=== PATIENT | female | born 1955 | race African-American/Black ===

== ENCOUNTER 2017-04-05 12:43 | Emergency (ER) | payer MEDICAID ==
[~2017-04-05] VITALS: Ht 170.2 cm; Wt 85.0 kg
[2017-04-05] MEDS ORDERED: SODIUM CHLORIDE 0.9% 1,000 ML IV ONE (16:00)
[2017-04-05 16:35] LABS: BASOPHILS % 0.6 % (0.0-2.0); CARBON DIOXIDE 31 mEq/L (21-32); CHLORIDE 97 mEq/L (98-107); HEMATOCRIT. 42.2 % (36.0-48.0); HEMOGLOBIN. 13.7 g/dL (12.0-16.0); LYMPHOCYTES % 32.3 % (20.0-50.0); MEAN CORPUSCULAR HEMOGLOBIN 28.3 pg (28.0-32.0); MEAN CORPUSCULAR VOLUME 87.2 fL (81.0-99.0); MONOCYTES % 11.3 % (2.0-8.0); NEUTROPHILS % 54.8 % (40.0-76.0); PLATELET 269 x1000/uL (130-400); RED BLOOD CELL COUNT 4.84 mill/uL (4.2-5.4); RED CELL DISTRIBUTION WIDTH 13.5 % (11.6-14.6)
[2017-04-05 16:40] LABS: TROPONIN I < 0.02 ng/mL (0.00-0.04)
[2017-04-05] MEDS ORDERED: LORAZEPAM 2MG/ML CPJ IV ONE (18:30)
[2017-04-05] MEDS ORDERED: LORAZEPAM 1MG TABLET PO NR (18:30)
[2017-04-05] MEDS ORDERED: MORPHINE SULFATE 2 MG/ML CPJ (NOT FOR IM USE) IV NR (18:30)
[2017-04-05 21:11] VITALS: BP 119/81
== END 2017-04-05 21:11 | disposition home or self-care (01) ==
LOC: ER 12:50
DX: E86.0 Dehydration (principal); R53.83 Other fatigue; R51 Headache; E78.00 Pure hypercholesterolemia, unspecified; E11.9 Type 2 diabetes mellitus without complications
CPT/HCPCS: 36415; 71010; 80053; 83605; 83690; 83880; 84484; 85025; 87040; 93005; 96361; 96374; 99285; J2270; J7030

== ENCOUNTER 2019-04-19 08:13 | Emergency (ER) | payer MEDICAID, OTHER ==
[~2019-04-19] VITALS: Ht 162.6 cm; Wt 85.0 kg
[2019-04-19] MEDS ORDERED: MORPHINE SULFATE 4 MG/ML CPJ (NOT FOR IM USE) IV STA (08:55)
[2019-04-19] MEDS ORDERED: ONDANSETRON HCL 4MG/2ML INJ IV STA (08:55)
[2019-04-19 09:53] LABS: CLARITY URINE CLEAR (CLEAR); COLOR URINE YELLOW (YELLOW); KETONES URINE 3+ (NEGATIVE); LEUKOCYTE ESTERASE URINE NEGATIVE (NEGATIVE); NITRITE URINE NEGATIVE (NEGATIVE); OCCULT BLOOD URINE TRACE (NEGATIVE); PH URINE 5.5 (4.5-8.0); PROTEIN URINE 1+ (NEGATIVE); SPECIFIC GRAVITY URINE 1.019 (1.005-1.030); UROBILINOGEN URINE 0.2 E.U./dL (0.2-1.0)
[2019-04-19 10:42] LABS: BASOPHILS % 0.3 % (0.0-2.0); EOSINOPHILS % 0.1 % (0.0-5.0); HEMATOCRIT. 35.2 % (36.0-48.0); HEMOGLOBIN. 11.5 g/dL (12.0-16.0); LYMPHOCYTES % 14.8 % (20.0-50.0); MEAN CORPUSCULAR HEMOGLOBIN 28.3 pg (28.0-32.0); MEAN CORPUSCULAR VOLUME 86.6 fL (81.0-99.0); MEAN PLATELET VOLUME 8.5 fl (7.4-10.4); MONOCYTES % 8.4 % (2.0-8.0); NEUTROPHILS % 76.4 % (40.0-76.0); PLATELET 222 x1000/uL (130-400); RED BLOOD CELL COUNT 4.06 mill/uL (4.2-5.4); RED CELL DISTRIBUTION WIDTH 13.4 % (11.6-14.6)
[2019-04-19 10:44] LABS: CHLORIDE 102 mEq/L (98-107)
[2019-04-19] MEDS ORDERED: ONDANSETRON 4MG ODT ONE (13:40)
[2019-04-19] MEDS ORDERED: ONDANSETRON HCL 4MG TABLET PO ONE (13:45)
[2019-04-19 14:18] VITALS: BP 162/80
[2019-04-22] MEDS ORDERED: OMEP40CA34 MT (11:27)
== END 2019-04-19 14:18 | disposition home or self-care (01) ==
LOC: ER 08:13
DX: R10.13 Epigastric pain (principal); R19.7 Diarrhea, unspecified; I10 Essential (primary) hypertension
CPT/HCPCS: 36415; 80053; 81003; 83690; 85025; 85610; 96374; 96375; 99283; J2270; J2405; Q0162

== ENCOUNTER 2019-04-20 09:26 | Inpatient (IN) | payer MEDICAID, OTHER ==
[~2019-04-20] VITALS: Ht 167.6 cm; Wt 80.9 kg
[2019-04-20] MEDS ORDERED: ACETAMINOPHEN 325MG TABLET PO STA (09:58)
[2019-04-20] MEDS ORDERED: ONDANSETRON HCL 4MG/2ML INJ IV STA (09:58)
[2019-04-20] MEDS ORDERED: SODIUM CHLORIDE 0.9% 1,000 ML IV ONE ×2 (09:58→12:05)
[2019-04-20] MEDS ORDERED: VISCOUS LIDOCAINE 2% 15 ML UDC PO STA (10:06)
[2019-04-20] MEDS ORDERED: MAGNESIUM/ALUMINUM HYDROXIDE/SIMETHICONE 30ML UDC PO STA (10:06)
[2019-04-20] MEDS ORDERED: FAMOTIDINE 20MG/2ML VIAL IV STA (10:06)
[2019-04-20 10:13] LABS: CHLORIDE 96 mEq/L (98-107)
[2019-04-20 10:14] LABS: BASOPHILS % 0.3 % (0.0-2.0); HEMATOCRIT. 39.2 % (36.0-48.0); HEMOGLOBIN. 12.4 g/dL (12.0-16.0); LYMPHOCYTES % 13.2 % (20.0-50.0); MEAN CORPUSCULAR VOLUME 88.3 fL (81.0-99.0); MEAN PLATELET VOLUME 9.6 fl (7.4-10.4); MONOCYTES % 5.3 % (2.0-8.0); NEUTROPHILS % 81.2 % (40.0-76.0); PLATELET 237 x1000/uL (130-400); RED BLOOD CELL COUNT 4.44 mill/uL (4.2-5.4); RED CELL DISTRIBUTION WIDTH 13.8 % (11.6-14.6)
[2019-04-20 11:24] LABS: CLARITY URINE CLEAR (CLEAR); COLOR URINE YELLOW (YELLOW); KETONES URINE 4+ (NEGATIVE); LEUKOCYTE ESTERASE URINE NEGATIVE (NEGATIVE); NITRITE URINE NEGATIVE (NEGATIVE); OCCULT BLOOD URINE NEGATIVE (NEGATIVE); PH URINE 5.5 (4.5-8.0); PROTEIN URINE TRACE (NEGATIVE); SPECIFIC GRAVITY URINE 1.037 (1.005-1.030); UROBILINOGEN URINE 0.2 E.U./dL (0.2-1.0)
[2019-04-20] MEDS ORDERED: INSULIN REGULAR (DRIP) 100 UNITS in SODIUM CHLORIDE 0.9% 99 ML IV SCH (12:05)
[2019-04-20] MEDS ORDERED: IOHEXOL-300 100 ML BOTTLE ONE (12:44)
[2019-04-20 13:01] LABS: PHOSPHORUS 4.4 mg/dL (2.5-4.9)
[2019-04-20 15:17] LABS: CHLORIDE 100 mEq/L (98-107)
[2019-04-20] MEDS ORDERED: ACETAMINOPHEN 325MG TABLET PO PRN (16:00)
[2019-04-20] MEDS ORDERED: DOCUSATE SODIUM 100MG CAPSULE PO PRN (16:00)
[2019-04-20] MEDS ORDERED: MAGNESIUM/ALUMINUM HYDROXIDE/SIMETHICONE 30ML UDC PO PRN (16:00)
[2019-04-20] MEDS ORDERED: ENOXAPARIN 40MG/0.4ML SYR SUBCUT SCH (16:00)
[2019-04-20] MEDS ORDERED: CLONIDINE 0.1MG TABLET PO PRN (16:00)
[2019-04-20] MEDS ORDERED: IPRATROPIUM/ALBUTEROL 0.5-3(2.5)MG/3ML NEB NEB PRN (16:00)
[2019-04-20 16:28] LABS: CHLORIDE 101 mEq/L (98-107)
[2019-04-20 17:54] LABS: BETA HYDROXYBUTYRATE 9.4 mMol/L (0.0-0.3)
[2019-04-20 17:57] LABS: T4 FREE 0.92 ng/dL (0.76-1.46)
[2019-04-20 19:38] LABS: CHLORIDE 102 mEq/L (98-107)
[2019-04-20 20:36] LABS: CHLORIDE 102 mEq/L (98-107)
[2019-04-20] MEDS: MORPHINE SULFATE 2 MG/ML CPJ (NOT FOR IM USE) IV PRN (21:24)
[2019-04-20] MEDS: SODIUM CHL 0.45% + KCL 20MEQ/L 1,000 ML IV SCH (22:24)
[2019-04-20] MEDS ORDERED: MORPHINE SULFATE 4 MG/ML CPJ (NOT FOR IM USE) IV PRN (22:30)
[2019-04-21] VITALS (19 sets, daily range): BP systolic 100–143; BP diastolic 41–95
[2019-04-21] MEDS: DEXTROSE 50% WATER 50ML SYRINGE IV PRN ×2 (01:31→03:00)
[2019-04-21] MEDS: MORPHINE SULFATE 2 MG/ML CPJ (NOT FOR IM USE) IV PRN ×2 (02:59→06:31)
[2019-04-21] MEDS: SODIUM CHL 0.45% + KCL 20MEQ/L 1,000 ML IV SCH (05:30)
[2019-04-21 05:55] LABS: BASOPHILS % 0.5 % (0.0-2.0); EOSINOPHILS % 0.1 % (0.0-5.0); HEMATOCRIT. 37.1 % (36.0-48.0); HEMOGLOBIN. 12.2 g/dL (12.0-16.0); LYMPHOCYTES % 26.9 % (20.0-50.0); MEAN CORPUSCULAR HEMOGLOBIN 28.2 pg (28.0-32.0); MEAN CORPUSCULAR VOLUME 86.1 fL (81.0-99.0); MEAN PLATELET VOLUME 8.8 fl (7.4-10.4); MONOCYTES % 11.8 % (2.0-8.0); NEUTROPHILS % 60.7 % (40.0-76.0); PLATELET 258 x1000/uL (130-400); RED BLOOD CELL COUNT 4.31 mill/uL (4.2-5.4); RED CELL DISTRIBUTION WIDTH 13.6 % (11.6-14.6)
[2019-04-21 06:06] LABS: CHLORIDE 107 mEq/L (98-107)
[2019-04-21 06:14] LABS: PHOSPHORUS 1.8 mg/dL (2.5-4.9)
[2019-04-21] MEDS: PANTOPRAZOLE SODIUM 40 MG/VIAL IV SCH (08:09)
[2019-04-21] MEDS: ENOXAPARIN 30MG/0.3ML SYR SUBCUT SCH ×2 (08:10→08:17)
[2019-04-21 09:25] LABS: BG BASE EXCESS -0.1 mmol/L (-2.0-2.0); BG CARBOXYHEMOGLOBIN 1.1 % (0.5-1.5); BG DEOXYHEMOGLOBIN 5.9 % (0.0-5.0); BG FRACTION INSPIRED OXYGEN 21; BG HCO3 ACT 25.4 mmol/L (22.0-26.0); BG METHEMOGLOBIN 0.1 % (0.0-1.5); BG OXYHEMOGLOBIN 92.9 % (94.0-97.0); BG PCO2 44.9 mmHg (35.0-45.0); BG PO2 73.1 mmHg (75.0-100.0); BG SAMPLE SITE RIGHT RADIAL; BG TOTAL HEMOGLOBIN 12.1 g/dL (12.0-18.0); BG VENT MODE ROOM AIR
[2019-04-21] MEDS ORDERED: DEXTROSE 50% WATER 50ML SYRINGE IV PRN (10:15)
[2019-04-21] MEDS ORDERED: POTASSIUM PHOS,M-BASIC-D-BASIC 20 MMOL in DEXT 5% WATER 243.3333 ML IV SCH (11:00)
[2019-04-21] MEDS: BLOOD SUGAR DIAGNOSTIC STRIP TEST SCH ×3 (11:15→20:17)
[2019-04-21] MEDS: INSULIN LISPRO 100 UNITS/ML SUBCUT SCH ×3 (12:02→20:30)
[2019-04-21 13:13] LABS: CHLORIDE 105 mEq/L (98-107)
[2019-04-21 20:01] LABS: CHLORIDE 105 mEq/L (98-107)
[2019-04-21] MEDS ORDERED: POTASSIUM CHLORIDE 20MEQ TABLET SR PO NR (21:15)
[2019-04-21] MEDS ORDERED: INSULIN GLARGINE UD 100 UNITS/ML SYR SUBCUT SCH (22:00)
[2019-04-22] VITALS: BP 122/58
[2019-04-22 04:00] VITALS: BP 96/75
[2019-04-22] MEDS: METOCLOPRAMIDE HCL 10MG/2ML VIAL IV NR ×4 (04:04→06:22)
[2019-04-22 04:07] LABS: FOLICLE STIMULATING HORMONE 8.7 mIU/mL (.); LUTEINIZING HORMONE 1.3 mIU/mL (.); PROLACTIN 15.2 ng/mL (4.8-23.3)
[2019-04-22] MEDS: BLOOD SUGAR DIAGNOSTIC STRIP TEST SCH ×3 (07:26→17:41)
[2019-04-22 07:30] LABS: CHLORIDE 105 mEq/L (98-107)
[2019-04-22 07:51] LABS: BASOPHILS % 0.5 % (0.0-2.0); EOSINOPHILS % 0.6 % (0.0-5.0); HEMATOCRIT. 36.6 % (36.0-48.0); LYMPHOCYTES % 27.9 % (20.0-50.0); MEAN CORPUSCULAR HEMOGLOBIN 28.5 pg (28.0-32.0); MEAN CORPUSCULAR VOLUME 86.8 fL (81.0-99.0); MEAN PLATELET VOLUME 9.1 fl (7.4-10.4); MONOCYTES % 11.5 % (2.0-8.0); NEUTROPHILS % 59.5 % (40.0-76.0); PLATELET 257 x1000/uL (130-400); RED BLOOD CELL COUNT 4.21 mill/uL (4.2-5.4); RED CELL DISTRIBUTION WIDTH 13.5 % (11.6-14.6)
[2019-04-22 08:00] VITALS: BP 142/68
[2019-04-22] MEDS: PANTOPRAZOLE SODIUM 40 MG/VIAL IV SCH (08:05)
[2019-04-22] MEDS: INSULIN LISPRO 100 UNITS/ML SUBCUT SCH ×3 (08:06→18:03)
[2019-04-22] MEDS ORDERED: ENOXAPARIN 40MG/0.4ML SYR SUBCUT SCH (09:00)
[2019-04-22] MEDS ORDERED: FENTANYL CITRATE/PF 50MCG/ML 2ML VIAL IV PRN (09:55)
[2019-04-22] MEDS ORDERED: MIDAZOLAM HCL 5 MG/5 ML VIAL IV PRN (09:56)
[2019-04-22] MEDS ORDERED: MIDAZOLAM HCL 5 MG/5 ML VIAL ONE (09:57)
[2019-04-22] MEDS ORDERED: FENTANYL CITRATE/PF 50MCG/ML 2ML VIAL ONE (09:57)
[2019-04-22] MEDS ORDERED: SUCR1TAB MT (11:27)
[2019-04-22] MEDS ORDERED: OMEP40CA12 MT (11:27)
[2019-04-22] MEDS ORDERED: METO-293 MT (11:27)
[2019-04-22] MEDS ORDERED: INSULIN LISPRO 100 UNITS/ML SUBCUT NR (11:30)
[2019-04-22 11:32] VITALS: BP 142/68
[2019-04-22 12:00] VITALS: BP 116/59
[2019-04-22] MEDS ORDERED: SODIUM CHL 0.45% + KCL 20MEQ/L 1,000 ML IV SCH (12:00)
[2019-04-22] MEDS: INSULIN LISPRO (CUSTOM DOSE) 100 UNITS/ML SUBCUT SCH ×2 (12:01→18:03)
[2019-04-22 12:06] LABS: PHOSPHORUS 2.3 mg/dL (2.5-4.9)
[2019-04-22] MEDS: METOCLOPRAMIDE HCL 10MG/2ML VIAL IV SCH ×2 (12:06→17:43)
[2019-04-22] MEDS: SUCRALFATE 1G TABLET PO SCH ×2 (12:06→17:43)
[2019-04-22] MEDS: SODIUM CHL 0.45% + KCL 20MEQ/L 1,000 ML IV SCH (12:06)
[2019-04-22] MEDS ORDERED: INSULIN LISPRO 100 UNITS/ML SUBCUT SCH (12:20)
[2019-04-22] MEDS ORDERED: POTASSIUM-SODIUM PHOSPHATE POWDER PACKET PO NR (13:00)
[2019-04-22] MEDS ORDERED: INSULIN GLARGINE UD 100 UNITS/ML SYR SUBCUT SCH (22:00)
== END 2019-04-22 18:52 | disposition home or self-care (01) | DRG 243 ==
LOC: ER 09:26 → EDBEDREQ 12:48 → ENRESERV 04-21 01:48 → MICUNO 04-21 02:43 → 6EST 04-21 14:09
PROVIDERS: ADMIT Internal Medicine; ATTEND Internal Medicine
PROC: 0DB68ZX Excision of Stomach, Via Natural or Artificial Opening Endoscopic, Diagnostic (ICD-10-PCS; principal; 2019-04-21)
DX: K21.0 Gastro-esophageal reflux disease with esophagitis (principal); E10.10 Type 1 diabetes mellitus with ketoacidosis without coma; E10.42 Type 1 diabetes mellitus with diabetic polyneuropathy; E87.1 Hypo-osmolality and hyponatremia; N28.1 Cyst of kidney, acquired; E78.00 Pure hypercholesterolemia, unspecified; E78.5 Hyperlipidemia, unspecified; E87.6 Hypokalemia; I10 Essential (primary) hypertension; M17.10 Unilateral primary osteoarthritis, unspecified knee; Z79.4 Long term (current) use of insulin; Z80.42 Family history of malignant neoplasm of prostate; Z83.3 Family history of diabetes mellitus; Z87.891 Personal history of nicotine dependence; Z88.8 Allergy status to other drugs, medicaments and biological substances
CPT/HCPCS: 36415; 36600; 71045; 74177; 80048; 80053; 81003; 82010; 82308; 82375; 82533; 82805; 82962; 83001; 83002; 83036; 83735; 83880; 84100; 84146; 84439; 84443; 84481; 84484; 85025; 88305; 88313; 93005; 93970; 97162; 99291; C1893; C9113; J1650; J1815; J2250; J2270; J2405; J2765; J3010; J3480; J3490; J7030; J7050; J7060; Q9967

== ENCOUNTER 2019-05-05 20:39 | Emergency (ER) | payer MEDICAID ==
[~2019-05-05] VITALS: Ht 170.2 cm; Wt 84.0 kg
[~2019-05-05 20:39] MED LIST: METO-293 MT; OMEP40CA34 MT; SUCR1TAB MT
[2019-05-06 00:20] VITALS: BP 148/68
[2019-05-07] MEDS ORDERED: INSU100I28 SQ ×2 (20:13)
== END 2019-05-06 01:41 | disposition home or self-care (01) ==
LOC: ER 20:39
DX: R06.02 Shortness of breath (principal); I49.3 Ventricular premature depolarization; E11.9 Type 2 diabetes mellitus without complications; E78.00 Pure hypercholesterolemia, unspecified; I10 Essential (primary) hypertension; Z88.6 Allergy status to analgesic agent; Z79.899 Other long term (current) drug therapy
CPT/HCPCS: 93005; 99283

== ENCOUNTER 2019-05-07 06:26 | Inpatient (IN) | payer MEDICAID ==
[~2019-05-07] VITALS: Ht 172.7 cm; Wt 90.3 kg
[~2019-05-07 06:26] MED LIST changes: +OMEP40CA12 MT; -OMEP40CA34 MT
[2019-05-07] MEDS ORDERED: METHYLPREDNISOLONE SOD SUCC 125 MG/2 ML VIAL IV STA (06:52)
[2019-05-07] MEDS ORDERED: IPRATROPIUM BROMIDE (0.02%) 0.5MG/2.5ML NEB HHN STA (06:52)
[2019-05-07] MEDS ORDERED: ALBUTEROL (0.083%) 2.5MG/3ML NEB HHN SCH (07:00)
[2019-05-07] MEDS ORDERED: FUROSEMIDE 20MG/2ML VIAL IVP ONE (07:45)
[2019-05-07] MEDS ORDERED: NITROGLYCERIN OINT 1GM/INCH UDPKT TD ONE (07:45)
[2019-05-07] MEDS ORDERED: ASPIRIN 325MG EC TABLET PO ONE (07:45)
[2019-05-07 08:17] LABS: BASOPHILS % 0.6 % (0.0-2.0); EOSINOPHILS % 1.2 % (0.0-5.0); HEMATOCRIT. 29.5 % (36.0-48.0); HEMOGLOBIN. 9.5 g/dL (12.0-16.0); LYMPHOCYTES % 24.5 % (20.0-50.0); MEAN CORPUSCULAR HEMOGLOBIN 28.4 pg (28.0-32.0); MEAN CORPUSCULAR VOLUME 87.9 fL (81.0-99.0); MEAN PLATELET VOLUME 8.1 fl (7.4-10.4); MONOCYTES % 11.2 % (2.0-8.0); NEUTROPHILS % 62.5 % (40.0-76.0); PLATELET 223 x1000/uL (130-400); RED BLOOD CELL COUNT 3.35 mill/uL (4.2-5.4); RED CELL DISTRIBUTION WIDTH 15.6 % (11.6-14.6)
[2019-05-07 08:22] LABS: CHLORIDE 108 mEq/L (98-107)
[2019-05-07 08:26] LABS: INR 0.9; PROTHROMBIN TIME 9.8 sec (9.6-11.0)
[2019-05-07] MEDS ORDERED: IPRATROPIUM/ALBUTEROL 0.5-3(2.5)MG/3ML NEB HHN SCH (15:15)
[2019-05-07] MEDS ORDERED: ONDANSETRON HCL 4MG/2ML INJ IV PRN (15:15)
[2019-05-07] MEDS ORDERED: ACETAMINOPHEN 325MG TABLET PO PRN (15:15)
[2019-05-07] MEDS ORDERED: CLONIDINE 0.1MG TABLET PO PRN (15:15)
[2019-05-07] MEDS ORDERED: KETOROLAC 30MG/ML VIAL IV SCH (16:15)
[2019-05-07 18:00] VITALS: BP 184/87
[2019-05-07] MEDS ORDERED: HYDROCODONE/ACETAMINOPHEN 5/325MG TABLET PO PRN (18:00)
[2019-05-07] MEDS: BLOOD SUGAR DIAGNOSTIC STRIP TEST SCH ×2 (19:08→20:53)
[2019-05-07] MEDS: INSULIN LISPRO 100 UNITS/ML SUBCUT SCH ×2 (19:11→23:36)
[2019-05-07] MEDS: FUROSEMIDE 40MG/4ML VIAL IVP SCH (19:30)
[2019-05-07 20:00] VITALS: BP_SYST 144; BP_DIAS 68; BP_DIAS 86
[2019-05-07] MEDS: ENOXAPARIN 40MG/0.4ML SYR SUBCUT SCH (20:00)
[2019-05-07] MEDS ORDERED: INSU100I28 SQ ×2 (20:13)
[2019-05-07] MEDS ORDERED: POTASSIUM CHLORIDE INJ 40 MEQ in DEXT 5% WATER 250 ML IV NR (21:00)
[2019-05-08 00:28] LABS: CREATINE KINASE 87 IU/L (26-192)
[2019-05-08 00:29] VITALS: BP 177/111
[2019-05-08 00:31] LABS: CREATINE KINASE MB FRACTION < 1.0 ng/mL (0.5-3.6)
[2019-05-08] MEDS: LISINOPRIL 10MG TABLET PO SCH ×2 (04:27→08:25)
[2019-05-08 04:32] VITALS: BP 127/88
[2019-05-08 06:35] LABS: BASOPHILS % 0.5 % (0.0-2.0); EOSINOPHILS % 0.1 % (0.0-5.0); HEMATOCRIT. 29.2 % (36.0-48.0); HEMOGLOBIN. 9.6 g/dL (12.0-16.0); LYMPHOCYTES % 20.2 % (20.0-50.0); MEAN CORPUSCULAR HEMOGLOBIN 28.5 pg (28.0-32.0); MEAN CORPUSCULAR VOLUME 86.6 fL (81.0-99.0); MEAN PLATELET VOLUME 8.5 fl (7.4-10.4); MONOCYTES % 9.9 % (2.0-8.0); NEUTROPHILS % 69.3 % (40.0-76.0); PLATELET 225 x1000/uL (130-400); RED BLOOD CELL COUNT 3.37 mill/uL (4.2-5.4); RED CELL DISTRIBUTION WIDTH 15.1 % (11.6-14.6)
[2019-05-08] MEDS: BLOOD SUGAR DIAGNOSTIC STRIP TEST SCH ×4 (06:46→21:00)
[2019-05-08] MEDS: INSULIN LISPRO 100 UNITS/ML SUBCUT SCH ×6 (06:51→22:30)
[2019-05-08 06:57] LABS: CREATINE KINASE 72 IU/L (26-192); CREATINE KINASE MB FRACTION < 1.0 ng/mL (0.5-3.6)
[2019-05-08] MEDS ORDERED: PREDNISONE 20MG TABLET PO SCH (07:15)
[2019-05-08 08:00] VITALS: BP 138/54
[2019-05-08] MEDS ORDERED: PNEUMOCOCCAL 23-VAL P-SAC VAC 0.5 ML IM ONE (08:00)
[2019-05-08] MEDS: METOPROLOL TARTRATE 25MG TABLET PO SCH ×2 (08:25→22:21)
[2019-05-08] MEDS: FUROSEMIDE 40MG/4ML VIAL IVP SCH (11:19)
[2019-05-08 12:00] VITALS: BP 143/59
[2019-05-08 16:00] VITALS: BP 159/72
[2019-05-08] MEDS: ENOXAPARIN 40MG/0.4ML SYR SUBCUT SCH (16:24)
[2019-05-08 17:05] LABS: BASOPHILS % 0.6 % (0.0-2.0); EOSINOPHILS % 1.1 % (0.0-5.0); HEMATOCRIT. 30.7 % (36.0-48.0); HEMOGLOBIN. 9.8 g/dL (12.0-16.0); LYMPHOCYTES % 34.8 % (20.0-50.0); MEAN CORPUSCULAR HEMOGLOBIN 28.1 pg (28.0-32.0); MEAN CORPUSCULAR VOLUME 87.7 fL (81.0-99.0); MEAN PLATELET VOLUME 7.6 fl (7.4-10.4); MONOCYTES % 8.6 % (2.0-8.0); NEUTROPHILS % 54.9 % (40.0-76.0); PLATELET 239 x1000/uL (130-400); RED BLOOD CELL COUNT 3.51 mill/uL (4.2-5.4); RED CELL DISTRIBUTION WIDTH 14.8 % (11.6-14.6)
[2019-05-08 17:11] LABS: CHLORIDE 102 mEq/L (98-107)
[2019-05-08] MEDS: KETOROLAC 30MG/ML VIAL IV PRN (17:58)
[2019-05-08] MEDS ORDERED: VANCOMYCIN 2,000 MG in DEXT 5% WATER 500 ML IV NR (18:00)
[2019-05-08] MEDS ORDERED: VANCOMYCIN 1500MG in DEXTROSE 5% WATER 250ML IV NR (18:00)
[2019-05-08 20:00] VITALS: BP 148/89
[2019-05-08] MEDS: IPRATROPIUM/ALBUTEROL 0.5-3(2.5)MG/3ML NEB HHN SCH (21:22)
[2019-05-08] MEDS ORDERED: INSULIN GLARGINE UD 100 UNITS/ML SYR SUBCUT SCH ×2 (22:00)
[2019-05-08] MEDS: INSULIN GLARGINE UD 100 UNITS/ML SYR SUBCUT SCH (22:00)
[2019-05-09] VITALS: BP 129/51
[2019-05-09] MEDS: IPRATROPIUM/ALBUTEROL 0.5-3(2.5)MG/3ML NEB HHN SCH ×6 (00:18→20:54)
[2019-05-09 04:00] VITALS: BP 155/66
[2019-05-09] MEDS: BLOOD SUGAR DIAGNOSTIC STRIP TEST SCH ×4 (06:35→21:50)
[2019-05-09] MEDS: INSULIN LISPRO 100 UNITS/ML SUBCUT SCH ×7 (06:41→21:00)
[2019-05-09 08:00] VITALS: BP 126/50
[2019-05-09] MEDS: FUROSEMIDE 40MG/4ML VIAL IVP SCH (09:35)
[2019-05-09] MEDS: VANCOMYCIN 1250MG in DEXTROSE 5% WATER 250ML IV SCH ×2 (09:35→20:10)
[2019-05-09] MEDS: METOPROLOL TARTRATE 25MG TABLET PO SCH ×2 (09:35→21:59)
[2019-05-09] MEDS: LISINOPRIL 10MG TABLET PO SCH (09:35)
[2019-05-09] MEDS: INSULIN GLARGINE UD 100 UNITS/ML SYR SUBCUT SCH ×2 (09:42→21:57)
[2019-05-09] MEDS ORDERED: SIMETHICONE/SOD BICARB/CIT AC 1 EACH GRAN.EF.PK ONE (10:52)
[2019-05-09] MEDS ORDERED: LIDOCAINE HCL 1% 20ML VIAL (Pyxis) INJ ONE (10:52)
[2019-05-09] MEDS ORDERED: SODIUM BICARBONATE 4% (2.4MEQ) 5ML VIAL IV ONE (10:53)
[2019-05-09 12:15] VITALS: BP 148/65
[2019-05-09] MEDS: KETOROLAC 30MG/ML VIAL IV PRN ×2 (12:35→20:12)
[2019-05-09 16:00] VITALS: BP 130/61
[2019-05-09 20:00] VITALS: BP 136/53
[2019-05-09] MEDS: ENOXAPARIN 40MG/0.4ML SYR SUBCUT SCH (20:00)
[2019-05-10] VITALS: BP 133/67
[2019-05-10] MEDS: IPRATROPIUM/ALBUTEROL 0.5-3(2.5)MG/3ML NEB HHN SCH ×6 (00:59→21:32)
[2019-05-10 03:52] VITALS: BP 162/77
[2019-05-10] MEDS: KETOROLAC 30MG/ML VIAL IV PRN (05:20)
[2019-05-10] MEDS: BLOOD SUGAR DIAGNOSTIC STRIP TEST SCH ×4 (06:22→20:35)
[2019-05-10] MEDS: INSULIN LISPRO 100 UNITS/ML SUBCUT SCH ×7 (06:59→20:34)
[2019-05-10 07:42] LABS: CHLORIDE 101 mEq/L (98-107)
[2019-05-10 08:00] VITALS: BP 181/87
[2019-05-10] MEDS: METOPROLOL TARTRATE 25MG TABLET PO SCH ×2 (08:03→17:45)
[2019-05-10] MEDS: LISINOPRIL 10MG TABLET PO SCH (08:03)
[2019-05-10] MEDS: FUROSEMIDE 40MG/4ML VIAL IVP SCH (08:03)
[2019-05-10] MEDS: VANCOMYCIN 1250MG in DEXTROSE 5% WATER 250ML IV SCH ×2 (08:04→20:13)
[2019-05-10] MEDS: INSULIN GLARGINE UD 100 UNITS/ML SYR SUBCUT SCH ×2 (08:54→22:00)
[2019-05-10 12:00] VITALS: BP 134/68
[2019-05-10 16:00] VITALS: BP 169/70
[2019-05-10 20:00] VITALS: BP 151/73
[2019-05-10] MEDS: ENOXAPARIN 40MG/0.4ML SYR SUBCUT SCH (20:14)
[2019-05-10] MEDS: AMLODIPINE 2.5MG TABLET PO SCH (20:14)
[2019-05-10] MEDS: DEXTROSE 50% WATER 50ML SYRINGE IV PRN (20:26)
[2019-05-11] VITALS: BP 116/58
[2019-05-11] MEDS: IPRATROPIUM/ALBUTEROL 0.5-3(2.5)MG/3ML NEB HHN SCH ×6 (01:22→21:49)
[2019-05-11] MEDS: KETOROLAC 30MG/ML VIAL IV PRN ×2 (03:29→19:02)
[2019-05-11 04:00] VITALS: BP 156/56
[2019-05-11] MEDS: BLOOD SUGAR DIAGNOSTIC STRIP TEST SCH ×4 (06:29→21:00)
[2019-05-11] MEDS: INSULIN LISPRO 100 UNITS/ML SUBCUT SCH ×7 (06:39→21:00)
[2019-05-11 08:00] VITALS: BP 125/52
[2019-05-11] MEDS: AMLODIPINE 2.5MG TABLET PO SCH ×2 (09:03→20:58)
[2019-05-11] MEDS: METOPROLOL TARTRATE 25MG TABLET PO SCH (09:03)
[2019-05-11] MEDS: LISINOPRIL 10MG TABLET PO SCH (09:03)
[2019-05-11] MEDS: FUROSEMIDE 40MG/4ML VIAL IVP SCH (09:03)
[2019-05-11] MEDS: VANCOMYCIN 1250MG in DEXTROSE 5% WATER 250ML IV SCH ×2 (09:08→20:58)
[2019-05-11] MEDS: INSULIN GLARGINE UD 100 UNITS/ML SYR SUBCUT SCH ×2 (10:35→22:00)
[2019-05-11 12:00] VITALS: BP 142/67
[2019-05-11] MEDS ORDERED: REGADENOSON 0.4 MG/5 ML IV ONE (14:30)
[2019-05-11 16:00] VITALS: BP 141/68
[2019-05-11 16:43] LABS: BASOPHILS % 0.6 % (0.0-2.0); EOSINOPHILS % 3.4 % (0.0-5.0); HEMATOCRIT. 33.5 % (36.0-48.0); HEMOGLOBIN. 10.7 g/dL (12.0-16.0); LYMPHOCYTES % 34.4 % (20.0-50.0); MEAN CORPUSCULAR HEMOGLOBIN 28.2 pg (28.0-32.0); MEAN CORPUSCULAR VOLUME 88.1 fL (81.0-99.0); MEAN PLATELET VOLUME 8.1 fl (7.4-10.4); MONOCYTES % 10.3 % (2.0-8.0); NEUTROPHILS % 51.3 % (40.0-76.0); PLATELET 254 x1000/uL (130-400); RED CELL DISTRIBUTION WIDTH 15.1 % (11.6-14.6)
[2019-05-11 16:54] LABS: TOTAL IRON BINDING CAPACITY 296 ug/dL (250-450)
[2019-05-11 17:19] LABS: VITAMIN B12 SERUM 880 pg/mL (211-911)
[2019-05-11 20:00] VITALS: BP 141/67
[2019-05-11] MEDS: ENOXAPARIN 40MG/0.4ML SYR SUBCUT SCH (20:58)
[2019-05-12] VITALS: BP 112/73
[2019-05-12 04:00] VITALS: BP 129/52
[2019-05-12] MEDS: IPRATROPIUM/ALBUTEROL 0.5-3(2.5)MG/3ML NEB HHN SCH ×5 (04:00→16:02)
[2019-05-12] MEDS: BLOOD SUGAR DIAGNOSTIC STRIP TEST SCH ×3 (06:04→16:36)
[2019-05-12] MEDS: INSULIN LISPRO 100 UNITS/ML SUBCUT SCH ×6 (06:06→17:49)
[2019-05-12 08:00] VITALS: BP 135/67
[2019-05-12] MEDS: DEXTROSE 50% WATER 50ML SYRINGE IV PRN ×2 (08:30→09:00)
[2019-05-12] MEDS ORDERED: REGADENOSON 0.4 MG/5 ML IV ONE (09:58)
[2019-05-12] MEDS: INSULIN GLARGINE UD 100 UNITS/ML SYR SUBCUT SCH (10:00)
[2019-05-12] MEDS: VANCOMYCIN 1250MG in DEXTROSE 5% WATER 250ML IV SCH (11:10)
[2019-05-12] MEDS: AMLODIPINE 2.5MG TABLET PO SCH (11:11)
[2019-05-12] MEDS: LISINOPRIL 10MG TABLET PO SCH (11:11)
[2019-05-12] MEDS: METOPROLOL TARTRATE 25MG TABLET PO SCH (11:11)
[2019-05-12] MEDS: FUROSEMIDE 40MG/4ML VIAL IVP SCH (11:11)
[2019-05-12] MEDS: KETOROLAC 30MG/ML VIAL IV PRN (12:17)
[2019-05-12] MEDS ORDERED: CEFEPIME 2,000 MG in DEXT 5% WATER 100 ML IV SCH (14:00)
[2019-05-12 15:05] LABS: CHLORIDE 102 mEq/L (98-107)
[2019-05-12 16:00] VITALS: BP 128/70
[2019-05-12 20:00] VITALS: BP 112/56
[2019-05-12 20:37] VITALS: BP 112/56
== END 2019-05-12 21:15 | disposition home or self-care (01) | DRG 194 ==
LOC: ER 06:26 → ENRESERV 15:59 → 5WST 18:37
PROVIDERS: ADMIT Internal Medicine; ATTEND Internal Medicine
PROC: 0S9C3ZZ Drainage of Right Knee Joint, Percutaneous Approach (ICD-10-PCS; principal; 2019-05-09)
DX: I11.0 Hypertensive heart disease with heart failure (principal); E11.69 Type 2 diabetes mellitus with other specified complication; E66.01 Morbid (severe) obesity due to excess calories; M86.8X8 Other osteomyelitis, other site; E44.1 Mild protein-calorie malnutrition; E78.5 Hyperlipidemia, unspecified; J45.909 Unspecified asthma, uncomplicated; E78.00 Pure hypercholesterolemia, unspecified; M17.11 Unilateral primary osteoarthritis, right knee; Z79.4 Long term (current) use of insulin; Z87.19 Personal history of other diseases of the digestive system; Z83.3 Family history of diabetes mellitus; Z87.891 Personal history of nicotine dependence; Z88.8 Allergy status to other drugs, medicaments and biological substances; Z79.899 Other long term (current) drug therapy; Z68.30 Body mass index [BMI] 30.0-30.9, adult; I50.31 Acute diastolic (congestive) heart failure
CPT/HCPCS: 20611; 36415; 71045; 73560; 73721; 78452; 80048; 80053; 80202; 82550; 82553; 82607; 82962; 83540; 83550; 83880; 84484; 85025; 85044; 85379; 85651; 86140; 87077; 87186; 89060; 90732; 93005; 93017; 93306; 93970; 94640; 99285; A9500; J0692; J1650; J1815; J1885; J1940; J2785; J2930; J3370; J3480; J3490; J7060; J7517; J7611; J7620

== ENCOUNTER 2019-12-14 11:57 | Inpatient (IN) | payer MEDICAID ==
[~2019-12-14] VITALS: Ht 167.6 cm; Wt 83.9 kg
[~2019-12-14 11:57] MED LIST changes: +INSU100I28 SQ; -METO-293 MT; -OMEP40CA12 MT; -SUCR1TAB MT
[2019-12-14] MEDS ORDERED: SODIUM CHLORIDE 0.9% 500 ML IV ONE ×2 (12:16→15:00)
[2019-12-14 12:45] LABS: BASOPHILS % 0.4 % (0.0-2.0); EOSINOPHILS % 2.4 % (0.0-5.0); HEMATOCRIT. 37.6 % (36.0-48.0); HEMOGLOBIN. 12.2 g/dL (12.0-16.0); LYMPHOCYTES % 30.3 % (20.0-50.0); MEAN CORPUSCULAR HEMOGLOBIN 28.5 pg (28.0-32.0); MEAN PLATELET VOLUME 8.7 fl (7.4-10.4); MONOCYTES % 8.6 % (2.0-8.0); NEUTROPHILS % 58.3 % (40.0-76.0); PLATELET 210 x1000/uL (130-400); RED BLOOD CELL COUNT 4.28 mill/uL (4.2-5.4)
[2019-12-14 12:49] LABS: CHLORIDE 104 mEq/L (98-107)
[2019-12-14 12:53] LABS: INR 0.9
[2019-12-14 14:34] LABS: CLARITY URINE CLOUDY (CLEAR); COLOR URINE YELLOW (YELLOW); KETONES URINE 1+ (NEGATIVE); LEUKOCYTE ESTERASE URINE TRACE (NEGATIVE); NITRITE URINE NEGATIVE (NEGATIVE); OCCULT BLOOD URINE NEGATIVE (NEGATIVE); PROTEIN URINE 1+ (NEGATIVE); SPECIFIC GRAVITY URINE 1.025 (1.005-1.030); UROBILINOGEN URINE 0.2 E.U./dL (0.2-1.0)
[2019-12-14] MEDS ORDERED: INSULIN REGULAR (HUMULIN R) 300UNITS/3ML SUBCUT ONE (15:00)
[2019-12-14] MEDS ORDERED: CEFTRIAXONE 1 G PREMIX 50 ML IV ONE (15:00)
[2019-12-14 18:11] VITALS: BP 98/45
[2019-12-14] MEDS ORDERED: ONDANSETRON HCL 4MG/2ML INJ IV PRN (18:15)
[2019-12-14] MEDS ORDERED: DEXTROSE 50% WATER 50ML SYRINGE IV PRN (18:45)
[2019-12-14 20:00] VITALS: BP 99/48
[2019-12-14] MEDS: BLOOD SUGAR DIAGNOSTIC STRIP TEST SCH (20:28)
[2019-12-14] MEDS: INSULIN GLARGINE UD 100 UNITS/ML SYR SUBCUT SCH (21:21)
[2019-12-14] MEDS: INSULIN LISPRO 100 UNITS/ML SUBCUT SCH (21:21)
[2019-12-14] MEDS: ACETAMINOPHEN 325MG TABLET PO PRN (21:29)
[2019-12-14 21:56] LABS: CLARITY URINE CLEAR (CLEAR); COLOR URINE YELLOW (YELLOW); KETONES URINE 1+ (NEGATIVE); LEUKOCYTE ESTERASE URINE NEGATIVE (NEGATIVE); NITRITE URINE NEGATIVE (NEGATIVE); OCCULT BLOOD URINE NEGATIVE (NEGATIVE); PH URINE 5.5 (4.5-8.0); PROTEIN URINE TRACE (NEGATIVE); SPECIFIC GRAVITY URINE 1.029 (1.005-1.030); UROBILINOGEN URINE 0.2 E.U./dL (0.2-1.0)
[2019-12-15] VITALS: BP 97/53
[2019-12-15] MEDS ORDERED: FURO-151 MT (00:56)
[2019-12-15] MEDS ORDERED: LISI-186 MT (00:56)
[2019-12-15] MEDS ORDERED: ATOR20TA65 MT (00:56)
[2019-12-15 04:00] VITALS: BP 115/43
[2019-12-15] MEDS: BLOOD SUGAR DIAGNOSTIC STRIP TEST SCH ×4 (06:27→21:25)
[2019-12-15] MEDS: INSULIN LISPRO 100 UNITS/ML SUBCUT SCH ×4 (06:40→21:36)
[2019-12-15 08:00] VITALS: BP 100/60
[2019-12-15] MEDS ORDERED: LISINOPRIL 20MG TABLET PO SCH (09:00)
[2019-12-15] MEDS: ENOXAPARIN 40MG/0.4ML SYR SUBCUT SCH (09:42)
[2019-12-15] MEDS: INSULIN GLARGINE UD 100 UNITS/ML SYR SUBCUT SCH ×2 (09:43→21:37)
[2019-12-15] MEDS: ACETAMINOPHEN 325MG TABLET PO PRN ×2 (10:09→21:37)
[2019-12-15] MEDS: METFORMIN HCL 500MG TABLET PO SCH ×2 (10:52→17:37)
[2019-12-15 12:00] VITALS: BP 123/62
[2019-12-15] MEDS ORDERED: CEFTRIAXONE 1,000 MG in DEXTROSE 5% WATER 50 ML IV SCH (15:00)
[2019-12-15 16:00] VITALS: BP_SYST 110; BP_SYST 118; BP_SYST 98; BP_DIAS 58; BP_DIAS 60; BP_DIAS 65
[2019-12-15 20:00] VITALS: BP_SYST 103; BP_SYST 82; BP_DIAS 45; BP_DIAS 54
[2019-12-16] VITALS: BP_SYST 103; BP_SYST 88; BP_SYST 92; BP_DIAS 48; BP_DIAS 50; BP_DIAS 52
[2019-12-16 04:00] VITALS: BP_SYST 108; BP_SYST 90; BP_SYST 92; BP_DIAS 51; BP_DIAS 57; BP_DIAS 59
[2019-12-16 05:54] LABS: CHLORIDE 107 mEq/L (98-107)
[2019-12-16] MEDS: BLOOD SUGAR DIAGNOSTIC STRIP TEST SCH ×3 (05:56→17:03)
[2019-12-16] MEDS: INSULIN LISPRO 100 UNITS/ML SUBCUT SCH ×3 (06:21→17:04)
[2019-12-16 06:45] LABS: BASOPHILS % 0.7 % (0.0-2.0); EOSINOPHILS % 3.4 % (0.0-5.0); HEMATOCRIT. 33.9 % (36.0-48.0); LYMPHOCYTES % 48.8 % (20.0-50.0); MEAN CORPUSCULAR HEMOGLOBIN 28.6 pg (28.0-32.0); MEAN CORPUSCULAR VOLUME 88.3 fL (81.0-99.0); MEAN PLATELET VOLUME 8.6 fl (7.4-10.4); MONOCYTES % 10.6 % (2.0-8.0); NEUTROPHILS % 36.5 % (40.0-76.0); PLATELET 207 x1000/uL (130-400); RED BLOOD CELL COUNT 3.84 mill/uL (4.2-5.4)
[2019-12-16 08:00] VITALS: BP_SYST 101; BP_SYST 125; BP_SYST 86; BP_DIAS 50; BP_DIAS 52; BP_DIAS 69
[2019-12-16] MEDS: METFORMIN HCL 500MG TABLET PO SCH ×2 (08:00→17:04)
[2019-12-16] MEDS: ENOXAPARIN 40MG/0.4ML SYR SUBCUT SCH (08:00)
[2019-12-16] MEDS: INSULIN GLARGINE UD 100 UNITS/ML SYR SUBCUT SCH (09:28)
[2019-12-16] MEDS: ACETAMINOPHEN 325MG TABLET PO PRN (09:30)
[2019-12-16 12:00] VITALS: BP 111/50
[2019-12-16] MEDS ORDERED: LANTUSUD SUBCUT (12:36)
[2019-12-16] MEDS ORDERED: FLUD0.1T MT (12:36)
[2019-12-16 12:46] VITALS: BP 111/50
[2019-12-16] MEDS ORDERED: FLUDROCORTISONE ACETATE 0.1MG TABLET PO SCH (13:00)
[2019-12-16 16:00] VITALS: BP 121/60
== END 2019-12-16 17:15 | disposition home or self-care (01) | DRG 463 ==
LOC: ER 11:57 → EDBEDREQTM 15:44 → 8WST 15:44 → EDBEDREQ 15:44 → ENRESERV 16:53 → 8WST 18:41
PROVIDERS: ADMIT Internal Medicine; ATTEND Internal Medicine
DX: N39.0 Urinary tract infection, site not specified (principal); E11.65 Type 2 diabetes mellitus with hyperglycemia; E78.5 Hyperlipidemia, unspecified; I10 Essential (primary) hypertension; I49.3 Ventricular premature depolarization; M17.11 Unilateral primary osteoarthritis, right knee; E78.00 Pure hypercholesterolemia, unspecified; Z91.81 History of falling; Z88.8 Allergy status to other drugs, medicaments and biological substances; Z79.899 Other long term (current) drug therapy
CPT/HCPCS: 36415; 71045; 80048; 80053; 81003; 82962; 83036; 83880; 84484; 85025; 93005; 93306; 96365; 97116; 97162; 97535; 99285; J0696; J1650; J1815; J7030; J7060

== ENCOUNTER 2020-09-14 21:56 | Emergency (ER) | payer MEDICARE, OTHER ==
[~2020-09-14] VITALS: Ht 170.2 cm; Wt 82.0 kg
[~2020-09-14 21:56] MED LIST changes: +ATOR20TA65 MT; +FLUD0.1T MT; -INSU100I28 SQ; +LANTUSUD SUBCUT
[2020-09-14 23:03] LABS: CHLORIDE 106 mEq/L (98-107)
[2020-09-14 23:06] LABS: BASOPHILS % 0.9 % (0.0-2.0); EOSINOPHILS % 1.3 % (0.0-5.0); HEMATOCRIT. 35.4 % (36.0-48.0); HEMOGLOBIN. 11.5 g/dL (12.0-16.0); LYMPHOCYTES % 39.1 % (20.0-50.0); MEAN CORPUSCULAR HEMOGLOBIN 28.5 pg (28.0-32.0); MEAN CORPUSCULAR VOLUME 87.4 fL (81.0-99.0); MEAN PLATELET VOLUME 8.8 fl (7.4-10.4); MONOCYTES % 7.9 % (2.0-8.0); NEUTROPHILS % 50.8 % (40.0-76.0); PLATELET 199 x1000/uL (130-400); RED BLOOD CELL COUNT 4.05 mill/uL (4.2-5.4); RED CELL DISTRIBUTION WIDTH 13.7 % (11.6-14.6)
[2020-09-15] MEDS ORDERED: ACETAMINOPHEN 325MG TABLET PO ONE (01:00)
[2020-09-15] MEDS ORDERED: ASPI-1497 MT (03:28)
[2020-09-15 04:00] VITALS: BP 125/69
[2020-09-15] MEDS ORDERED: ASPIRIN 81MG TABLET PO NR (04:00)
== END 2020-09-15 04:12 | disposition home or self-care (01) ==
LOC: ER 21:56
DX: R06.02 Shortness of breath (principal); R06.00 Dyspnea, unspecified; E11.9 Type 2 diabetes mellitus without complications; E78.00 Pure hypercholesterolemia, unspecified; I11.0 Hypertensive heart disease with heart failure; I50.9 Heart failure, unspecified; Z98.890 Other specified postprocedural states; Z88.8 Allergy status to other drugs, medicaments and biological substances; Z79.899 Other long term (current) drug therapy; Z79.4 Long term (current) use of insulin; Z79.82 Long term (current) use of aspirin
CPT/HCPCS: 36415; 71045; 80053; 83880; 84484; 85025; 93005; 99285

== ENCOUNTER 2021-06-04 19:45 | Emergency (ER) | payer MEDICARE, MEDICAID ==
[~2021-06-04] VITALS: Ht 175.3 cm; Wt 82.0 kg
[~2021-06-04 19:45] MED LIST changes: +ASPI-1497 MT
[2021-06-04 20:00] VITALS: BP 116/64
[2021-06-05] MEDS ORDERED: SODIUM CHLORIDE 0.9% 1,000 ML IV ONE (02:15)
[2021-06-05 03:27] LABS: CHLORIDE 105 mEq/L (98-107)
[2021-06-05 03:31] LABS: BASOPHILS % 0.2 % (0.0-2.0); HEMATOCRIT. 39.1 % (36.0-48.0); HEMOGLOBIN. 12.7 g/dL (12.0-16.0); LYMPHOCYTES % 29.4 % (20.0-50.0); MEAN CORPUSCULAR HEMOGLOBIN 27.9 pg (28.0-32.0); MEAN CORPUSCULAR VOLUME 85.8 fL (81.0-99.0); MEAN PLATELET VOLUME 8.6 fl (7.4-10.4); MONOCYTES % 7.7 % (2.0-8.0); NEUTROPHILS % 62.7 % (40.0-76.0); PLATELET 190 x1000/uL (130-400); RED BLOOD CELL COUNT 4.56 mill/uL (4.2-5.4)
== END 2021-06-05 06:24 | disposition home or self-care (01) ==
LOC: ER 19:45
DX: E86.0 Dehydration (principal)
CPT/HCPCS: 36415; 80053; 82962; 84484; 85025; 93005; 96360; 96361; 99284; J7030

== ENCOUNTER 2021-06-10 12:48 | Inpatient (IN) | payer MEDICARE, MEDICAID ==
[~2021-06-10] VITALS: Ht 170.2 cm; Wt 84.0 kg
[2021-06-10 13:31] LABS: HEMATOCRIT. 35.7 % (36.0-48.0); HEMOGLOBIN. 11.3 g/dL (12.0-16.0); MEAN CORPUSCULAR HEMOGLOBIN 26.9 pg (28.0-32.0); MEAN PLATELET VOLUME 8.4 fl (7.4-10.4); PLATELET 304 x1000/uL (130-400); RED CELL DISTRIBUTION WIDTH 13.1 % (11.6-14.6)
[2021-06-10 13:39] LABS: CHLORIDE 102 mEq/L (98-107)
[2021-06-10 13:46] LABS: HCG SCREEN NEGATIVE
[2021-06-10 14:00] LABS: PLATELET ESTIMATE NORMAL
[2021-06-10] MEDS ORDERED: CEFTRIAXONE 1 G PREMIX 50 ML IV ONE (15:30)
[2021-06-10] MEDS ORDERED: AZITHROMYCIN 500MG/250ML 250 ML IV ONE (15:30)
[2021-06-10 15:38] LABS: CLARITY URINE TURBID (CLEAR); COLOR URINE YELLOW (YELLOW); KETONES URINE TRACE (NEGATIVE); LEUKOCYTE ESTERASE URINE 3+ (NEGATIVE); NITRITE URINE NEGATIVE (NEGATIVE); OCCULT BLOOD URINE 2+ (NEGATIVE); PH URINE 5.5 (4.5-8.0); PROTEIN URINE 2+ (NEGATIVE); SPECIFIC GRAVITY URINE 1.012 (1.005-1.030); UROBILINOGEN URINE 0.2 E.U./dL (0.2-1.0)
[2021-06-10] MEDS ORDERED: SODIUM CHLORIDE 0.9% 1,000 ML IV ONE (16:00)
[2021-06-10] MEDS ORDERED: INSULIN LISPRO 100 UNITS/ML SUBCUT NR (16:00)
[2021-06-10] MEDS ORDERED: ACETAMINOPHEN 325MG TABLET PO PRN ×2 (18:45)
[2021-06-10] MEDS ORDERED: LORAZEPAM 0.5MG TABLET PO PRN (18:45)
[2021-06-10] MEDS ORDERED: ONDANSETRON HCL 4MG/2ML INJ IV PRN (18:45)
[2021-06-10] MEDS ORDERED: CLONIDINE 0.1MG TABLET PO PRN (18:45)
[2021-06-10] MEDS ORDERED: SODIUM CHLORIDE 0.9% 100 ML IV ONE (18:45)
[2021-06-10] MEDS ORDERED: HYDROCODONE/ACETAMINOPHEN 5/325MG TABLET PO PRN (18:45)
[2021-06-10] MEDS ORDERED: IPRATROPIUM/ALBUTEROL 0.5-3(2.5)MG/3ML NEB HHN PRN (18:45)
[2021-06-10] MEDS ORDERED: DOCUSATE SODIUM 100MG CAPSULE PO PRN (18:45)
[2021-06-10] MEDS: DEXAMETHASONE 10 MG/ML VIAL IV SCH (19:29)
[2021-06-10 21:23] VITALS: BP 115/61
[2021-06-10] MEDS: ENOXAPARIN 40MG/0.4ML SYR SUBCUT SCH (23:09)
[2021-06-11] VITALS (7 sets, daily range): BP systolic 115–152; BP diastolic 48–70
[2021-06-11 09:05] LABS: HEMOGLOBIN. 11.9 g/dL (12.0-16.0); MEAN CORPUSCULAR HEMOGLOBIN 27.6 pg (28.0-32.0); PLATELET 369 x1000/uL (130-400); RED CELL DISTRIBUTION WIDTH 13.1 % (11.6-14.6)
[2021-06-11 09:38] LABS: CHLORIDE 102 mEq/L (98-107)
[2021-06-11] MEDS: DEXAMETHASONE 10 MG/ML VIAL IV SCH (12:17)
[2021-06-11] MEDS ORDERED: INSULIN LISPRO 100 UNITS/ML SUBCUT SCH (12:30)
[2021-06-11] MEDS ORDERED: DEXTROSE 50% WATER 50ML SYRINGE IV PRN (12:30)
[2021-06-11] MEDS: BLOOD SUGAR DIAGNOSTIC STRIP TEST SCH ×3 (12:32→21:02)
[2021-06-11] MEDS ORDERED: INSULIN LISPRO 100 UNITS/ML SUBCUT NR (13:00)
[2021-06-11] MEDS: INSULIN LISPRO 100 UNITS/ML SUBCUT SCH ×3 (13:08→21:07)
[2021-06-11] MEDS: INSULIN GLARGINE UD 100 UNITS/ML SYR SUBCUT SCH ×2 (13:29→22:15)
[2021-06-11] MEDS ORDERED: CEFTRIAXONE 1,000 MG in DEXTROSE 5% WATER 50 ML IV SCH (14:00)
[2021-06-11] MEDS: FLUDROCORTISONE ACETATE 0.1MG TABLET PO SCH (14:29)
[2021-06-11] MEDS: ASPIRIN 81MG EC TABLET PO SCH (14:29)
[2021-06-11] MEDS ORDERED: CEFTRIAXONE 1 G PREMIX 50 ML IV SCH (15:30)
[2021-06-11] MEDS ORDERED: AZITHROMYCIN 500 MG in DEXT 5% WATER 250 ML IV SCH ×2 (16:00→18:30)
[2021-06-11 17:00] LABS: PLATELET ESTIMATE NORMAL
[2021-06-11] MEDS ORDERED: ATORVASTATIN CALCIUM 20MG TABLET PO SCH (21:00)
[2021-06-11] MEDS: ENOXAPARIN 40MG/0.4ML SYR SUBCUT SCH (21:02)
[2021-06-12] VITALS: BP 140/65
[2021-06-12 04:00] VITALS: BP 154/84
[2021-06-12] MEDS: BLOOD SUGAR DIAGNOSTIC STRIP TEST SCH ×2 (06:02→11:57)
[2021-06-12] MEDS ORDERED: INSULIN LISPRO 100 UNITS/ML SUBCUT SCH (06:15)
[2021-06-12] MEDS: INSULIN LISPRO 100 UNITS/ML SUBCUT SCH ×2 (06:25→11:57)
[2021-06-12 08:00] VITALS: BP 108/83
[2021-06-12 08:24] LABS: HEMATOCRIT. 34.7 % (36.0-48.0); HEMOGLOBIN. 11.4 g/dL (12.0-16.0); MEAN CORPUSCULAR HEMOGLOBIN 27.7 pg (28.0-32.0); MEAN CORPUSCULAR VOLUME 84.3 fL (81.0-99.0); MEAN PLATELET VOLUME 8.6 fl (7.4-10.4); PLATELET 395 x1000/uL (130-400); RED BLOOD CELL COUNT 4.11 mill/uL (4.2-5.4); RED CELL DISTRIBUTION WIDTH 12.9 % (11.6-14.6)
[2021-06-12 08:50] LABS: CHLORIDE 104 mEq/L (98-107)
[2021-06-12] MEDS: INSULIN GLARGINE UD 100 UNITS/ML SYR SUBCUT SCH (10:00)
[2021-06-12] MEDS: ASPIRIN 81MG EC TABLET PO SCH (10:19)
[2021-06-12] MEDS: FLUDROCORTISONE ACETATE 0.1MG TABLET PO SCH (10:19)
[2021-06-12] MEDS ORDERED: CEPH500T MT (11:48)
[2021-06-12 12:00] VITALS: BP 124/52
[2021-06-12 13:28] VITALS: BP 124/52
[2021-06-12 15:58] LABS: PLATELET ESTIMATE NORMAL
== END 2021-06-12 14:15 | disposition home or self-care (01) | DRG 720 ==
LOC: ER 12:48 → 7EST 17:11 → ENRESERV 20:11
PROVIDERS: ADMIT Internal Medicine; ATTEND Internal Medicine
DX: A41.89 Other specified sepsis (principal); J12.82 Pneumonia due to coronavirus disease 2019; U07.1 COVID-19; E88.09 Other disorders of plasma-protein metabolism, not elsewhere classified; D64.9 Anemia, unspecified; D72.821 Monocytosis (symptomatic); E11.65 Type 2 diabetes mellitus with hyperglycemia; E78.5 Hyperlipidemia, unspecified; E86.0 Dehydration; I10 Essential (primary) hypertension; N39.0 Urinary tract infection, site not specified; M17.11 Unilateral primary osteoarthritis, right knee; Z79.4 Long term (current) use of insulin; Z88.8 Allergy status to other drugs, medicaments and biological substances; Z82.49 Family history of ischemic heart disease and other diseases of the circulatory system; R80.9 Proteinuria, unspecified
CPT/HCPCS: 36415; 71045; 80048; 80053; 81003; 82962; 83036; 83615; 84145; 84484; 84703; 85025; 86140; 87077; 87186; 87426; 93005; 99285; J0456; J0696; J1100; J1650; J1815; J7030; J7060

== ENCOUNTER 2021-07-01 17:35 | Emergency (ER) | payer MEDICARE, MEDICAID ==
[~2021-07-01] VITALS: Ht 167.6 cm; Wt 82.0 kg
[~2021-07-01 17:35] MED LIST changes: +CEPH500T MT
[2021-07-01] MEDS ORDERED: ACETAMINOPHEN 325MG TABLET PO ONE (22:30)
[2021-07-01 23:58] VITALS: BP 135/76
== END 2021-07-02 00:12 | disposition home or self-care (01) ==
LOC: ER 17:35
DX: R51.9 Headache, unspecified (principal); I10 Essential (primary) hypertension
CPT/HCPCS: 99284

== ENCOUNTER 2022-02-25 11:26 | Emergency (ER) | payer MEDICARE, OTHER ==
[~2022-02-25] VITALS: Ht 170.2 cm; Wt 84.0 kg
[~2022-02-25 11:26] MED LIST changes: +ATOR40TA70 MT; +INSU100I28 SQ; +SULF1TAB48 MT
[2022-02-25] MEDS ORDERED: FAMOTIDINE 20MG/2ML VIAL IV ONE (12:30)
[2022-02-25] MEDS ORDERED: VISCOUS LIDOCAINE 2% 15 ML UDC MM ONE (12:30)
[2022-02-25] MEDS ORDERED: MAGNESIUM/ALUMINUM HYDROXIDE/SIMETHICONE 30ML UDC PO ONE (12:30)
[2022-02-25 13:17] LABS: BASOPHILS % 0.3 % (0.0-2.0); EOSINOPHILS % 0.5 % (0.0-5.0); HEMATOCRIT. 34.9 % (36.0-48.0); HEMOGLOBIN. 11.3 g/dL (12.0-16.0); LYMPHOCYTES % 19.7 % (20.0-50.0); MEAN CORPUSCULAR HEMOGLOBIN 28.3 pg (28.0-32.0); MEAN CORPUSCULAR VOLUME 87.3 fL (81.0-99.0); MEAN PLATELET VOLUME 8.3 fl (7.4-10.4); MONOCYTES % 7.5 % (2.0-8.0); PLATELET 216 x1000/uL (130-400); RED CELL DISTRIBUTION WIDTH 14.2 % (11.6-14.6)
[2022-02-25 13:18] LABS: CHLORIDE 101 mEq/L (98-107); PROTHROMBIN TIME 10.3 sec (9.6-11.0)
[2022-02-25] MEDS ORDERED: SODIUM CHLORIDE 0.9% 1,000 ML IV ONE ×2 (14:15→17:15)
[2022-02-25 14:32] LABS: CLARITY URINE CLOUDY (CLEAR); COLOR URINE YELLOW (YELLOW); KETONES URINE 2+ (NEGATIVE); LEUKOCYTE ESTERASE URINE 1+ (NEGATIVE); NITRITE URINE NEGATIVE (NEGATIVE); OCCULT BLOOD URINE NEGATIVE (NEGATIVE); PROTEIN URINE 1+ (NEGATIVE); SPECIFIC GRAVITY URINE 1.024 (1.005-1.030); UROBILINOGEN URINE 0.2 E.U./dL (0.2-1.0)
[2022-02-25] MEDS ORDERED: FAMOTIDINE 20MG/2ML VIAL IV NR (15:00)
[2022-02-25 17:38] VITALS: BP 146/69
== END 2022-02-25 18:54 | disposition short-term general hospital (02) ==
LOC: ER 11:26 → CANBEDREQ 20:09
DX: K85.90 Acute pancreatitis without necrosis or infection, unspecified (principal); R94.31 Abnormal electrocardiogram [ECG] [EKG]; I11.0 Hypertensive heart disease with heart failure; I50.9 Heart failure, unspecified; Z20.822 Contact with and (suspected) exposure to COVID-19; R16.0 Hepatomegaly, not elsewhere classified
CPT/HCPCS: 36415; 74176; 76705; 80053; 81003; 82962; 83690; 84484; 85025; 85610; 87426; 93005; 96361; 96374; 99285; C9803; J3490; J7030

== ENCOUNTER 2022-05-08 23:32 | Emergency (ER) | payer MEDICARE, OTHER ==
[~2022-05-08] VITALS: Ht 172.7 cm; Wt 77.0 kg
[2022-05-08] MEDS ORDERED: ACETAMINOPHEN 325MG TABLET PO STA (23:43)
[2022-05-09] MEDS ORDERED: ACETAMINOPHEN 325MG TABLET PO ONE (03:30)
[2022-05-09 05:22] LABS: BASOPHILS % 0.9 % (0.0-2.0); EOSINOPHILS % 1.5 % (0.0-5.0); HEMATOCRIT. 35.9 % (36.0-48.0); HEMOGLOBIN. 11.5 g/dL (12.0-16.0); LYMPHOCYTES % 41.1 % (20.0-50.0); MEAN CORPUSCULAR HEMOGLOBIN 28.9 pg (28.0-32.0); MEAN CORPUSCULAR VOLUME 89.6 fL (81.0-99.0); MEAN PLATELET VOLUME 8.7 fl (7.4-10.4); MONOCYTES % 9.7 % (2.0-8.0); NEUTROPHILS % 46.8 % (40.0-76.0); PLATELET 201 x1000/uL (130-400); RED CELL DISTRIBUTION WIDTH 13.9 % (11.6-14.6)
[2022-05-09 05:30] LABS: INR 0.9; PROTHROMBIN TIME 9.8 sec (9.6-11.0)
[2022-05-09 05:31] LABS: CHLORIDE 103 mEq/L (98-107)
[2022-05-09 06:22] LABS: CLARITY URINE CLEAR (CLEAR); COLOR URINE YELLOW (YELLOW); KETONES URINE NEGATIVE (NEGATIVE); LEUKOCYTE ESTERASE URINE NEGATIVE (NEGATIVE); NITRITE URINE NEGATIVE (NEGATIVE); OCCULT BLOOD URINE NEGATIVE (NEGATIVE); PH URINE 5.5 (4.5-8.0); PROTEIN URINE NEGATIVE (NEGATIVE); SPECIFIC GRAVITY URINE 1.023 (1.005-1.030); UROBILINOGEN URINE 0.2 E.U./dL (0.2-1.0)
[2022-05-09] MEDS ORDERED: INSULIN LISPRO 100 UNITS/ML SUBCUT ONE (07:15)
[2022-05-09 07:56] VITALS: BP 153/69
== END 2022-05-09 08:08 | disposition home or self-care (01) ==
LOC: ER 23:32
DX: R51.9 Headache, unspecified (principal); E11.65 Type 2 diabetes mellitus with hyperglycemia; I50.9 Heart failure, unspecified; Z88.5 Allergy status to narcotic agent; Z98.890 Other specified postprocedural states
CPT/HCPCS: 36415; 80053; 81003; 85025; 96372; 99284

== ENCOUNTER 2022-07-26 15:45 | Emergency (ER) | payer MEDICARE, OTHER ==
[~2022-07-26] VITALS: Ht 167.6 cm; Wt 75.0 kg
[2022-07-26 15:46] VITALS: BP 170/60
[2022-07-26] MEDS ORDERED: IBUPROFEN 600MG TABLET PO ONE (23:15)
[2022-07-26] MEDS ORDERED: IMIT25 MT (23:22)
== END 2022-07-27 00:42 | disposition home or self-care (01) ==
LOC: ER 15:45
DX: R51.9 Headache, unspecified (principal); R03.0 Elevated blood-pressure reading, without diagnosis of hypertension
CPT/HCPCS: 99284

== ENCOUNTER 2022-08-18 10:41 | Emergency (ER) | payer MEDICARE, OTHER ==
[~2022-08-18] VITALS: Ht 170.2 cm; Wt 84.0 kg
[~2022-08-18 10:41] MED LIST changes: +IMIT25 MT
[2022-08-18 11:26] LABS: BASOPHILS % 0.2 % (0.0-2.0); EOSINOPHILS % 0.4 % (0.0-5.0); HEMATOCRIT. 33.9 % (36.0-48.0); HEMOGLOBIN. 11.1 g/dL (12.0-16.0); LYMPHOCYTES % 8.7 % (20.0-50.0); MEAN CORPUSCULAR HEMOGLOBIN 27.8 pg (28.0-32.0); MEAN CORPUSCULAR VOLUME 85.3 fL (81.0-99.0); MONOCYTES % 8.6 % (2.0-8.0); NEUTROPHILS % 82.1 % (40.0-76.0); PLATELET 240 x1000/uL (130-400); RED BLOOD CELL COUNT 3.97 mill/uL (4.2-5.4); RED CELL DISTRIBUTION WIDTH 14.5 % (11.6-14.6)
[2022-08-18 11:36] LABS: CHLORIDE 101 mEq/L (98-107)
[2022-08-18] MEDS ORDERED: INSULIN REGULAR (HUMULIN R) 300UNITS/3ML VIAL SUBCUT NR (12:30)
[2022-08-18] MEDS ORDERED: AMOX1TAB16 MT (12:51)
[2022-08-18] MEDS ORDERED: SULF1TAB48 MT (12:51)
[2022-08-18 13:37] VITALS: BP 154/48
== END 2022-08-18 13:39 | disposition home or self-care (01) ==
LOC: ER 10:41
DX: E11.621 Type 2 diabetes mellitus with foot ulcer (principal); Z79.899 Other long term (current) drug therapy; Z98.890 Other specified postprocedural states
CPT/HCPCS: 36415; 73630; 80053; 82962; 85025; 99284; J1815

== ENCOUNTER 2022-09-25 00:23 | Emergency (ER) | payer MEDICARE, OTHER ==
[~2022-09-25] VITALS: Ht 162.6 cm; Wt 80.0 kg
[~2022-09-25 00:23] MED LIST changes: +AMOX1TAB16 MT
[2022-09-25 00:31] VITALS: BP 163/76
[2022-09-25] MEDS ORDERED: IBUPROFEN 600MG TABLET PO STA (00:34)
[2022-09-25] MEDS ORDERED: AMLO2.5T2 MT (04:18)
== END 2022-09-25 04:35 | disposition home or self-care (01) ==
LOC: ER 00:23
DX: I16.0 Hypertensive urgency (principal); R51.9 Headache, unspecified; K21.9 Gastro-esophageal reflux disease without esophagitis; I50.9 Heart failure, unspecified; E11.9 Type 2 diabetes mellitus without complications; Z88.5 Allergy status to narcotic agent; Z79.4 Long term (current) use of insulin; Z79.82 Long term (current) use of aspirin
CPT/HCPCS: 99284

== ENCOUNTER 2023-04-24 21:37 | Emergency (ER) | payer MEDICARE, OTHER ==
[~2023-04-24] VITALS: Ht 170.2 cm; Wt 89.9 kg
[~2023-04-24 21:37] MED LIST changes: +AMLO2.5T2 MT
[2023-04-24 22:03] VITALS: TEMP 98.4; O2SAT 98
[2023-04-24 23:04] LABS: BASOPHILS % 1.2 % (0.0-2.0); EOSINOPHILS % 1.7 % (0.0-5.0); HEMATOCRIT. 35.2 % (36.0-48.0); HEMOGLOBIN. 11.2 g/dL (12.0-16.0); LYMPHOCYTES % 36.3 % (20.0-50.0); MEAN CORPUSCULAR HEMOGLOBIN 28.6 pg (28.0-32.0); MEAN CORPUSCULAR HGB CONC 31.7 g/dL (31.0-37.0); MEAN CORPUSCULAR VOLUME 90.3 fL (81.0-99.0); MEAN PLATELET VOLUME 8.4 fl (7.4-10.4); MONOCYTES % 7.4 % (2.0-8.0); NEUTROPHILS % 53.4 % (40.0-76.0); PLATELET 255 x1000/uL (130-400); RED CELL DISTRIBUTION WIDTH 13.5 % (11.6-14.6); WHITE BLOOD COUNT 4.7 x1000/uL (4.5-11.0)
[2023-04-24 23:20] LABS: ALANINE AMINOTRANSFERASE 28 IU/L (10-49); ASPARTATE AMINOTRANSFERASE 27 IU/L (<34); BILIRUBIN TOTAL 0.4 mg/dL (0.1-1.0); CALCIUM 9.3 mg/dL (8.7-10.4); CARBON DIOXIDE 32 mEq/L (21-32); CHLORIDE 103 mEq/L (98-107); GLUCOSE 366 mg/dL (70-105); POTASSIUM 4.2 mEq/L (3.5-5.1); PROTEIN TOTAL 7.2 g/dL (6.0-8.3); SODIUM 140 mEq/L (136-145); TROPONIN I HIGH SENSITIVITY 6 ng/L (3.0-34); UREA NITROGEN BLOOD 21 mg/dL (9-23)
[2023-04-25 00:26] VITALS: BP 143/57; PULSE 83; RESP 17
== END 2023-04-25 00:37 | disposition home or self-care (01) ==
LOC: ER 21:37
DX: R06.02 Shortness of breath (principal); F43.9 Reaction to severe stress, unspecified; F19.90 Other psychoactive substance use, unspecified, uncomplicated; E11.9 Type 2 diabetes mellitus without complications; Z88.8 Allergy status to other drugs, medicaments and biological substances
CPT/HCPCS: 36415; 71045; 80053; 84484; 85025; 93005; 99285

== ENCOUNTER 2024-04-19 16:51 | Emergency (ER) | payer MEDICARE, OTHER ==
[~2024-04-19] VITALS: Ht 170.2 cm; Wt 87.0 kg
[2024-04-19 16:54] VITALS: O2SAT 98
[2024-04-19 17:00] VITALS: BP 113/69; PULSE 88; RESP 18; TEMP 98.5; O2SAT 100
[2024-04-19] MEDS ORDERED: ACETAMINOPHEN 325MG TABLET PO ONE (20:00)
== END 2024-04-19 18:56 | disposition left against medical advice (07) ==
LOC: ER 16:51
DX: R51.9 Headache, unspecified (principal); E11.9 Type 2 diabetes mellitus without complications; E78.00 Pure hypercholesterolemia, unspecified; I50.9 Heart failure, unspecified; F19.90 Other psychoactive substance use, unspecified, uncomplicated; Z79.899 Other long term (current) drug therapy; Z88.5 Allergy status to narcotic agent
CPT/HCPCS: 93005; 99284

== ENCOUNTER 2024-04-20 11:14 | Emergency (ER) | payer MEDICARE, OTHER ==
[~2024-04-20] VITALS: Ht 170.2 cm; Wt 86.0 kg
[2024-04-20 11:17] VITALS: O2SAT 99
[2024-04-20 11:23] VITALS: BP 110/85; PULSE 94; RESP 14; O2SAT 98
[2024-04-20 13:05] LABS: POTASSIUM 4.6 mEq/L (3.5-5.1)
[2024-04-20 13:06] LABS: BASOPHILS % 0.7 % (0.0-2.0); CALCIUM 9.9 mg/dL (8.7-10.4); EOSINOPHILS % 0.7 % (0.0-5.0); HEMATOCRIT. 38.4 % (36.0-48.0); HEMOGLOBIN. 12.2 g/dL (12.0-16.0); MEAN CORPUSCULAR HEMOGLOBIN 28.5 pg (28.0-32.0); MEAN CORPUSCULAR HGB CONC 31.8 g/dL (31.0-37.0); MEAN CORPUSCULAR VOLUME 89.7 fL (81.0-99.0); MEAN PLATELET VOLUME 9.1 fl (7.4-10.4); MONOCYTES % 3.7 % (2.0-8.0); NEUTROPHILS % 72.9 % (40.0-76.0); PLATELET 223 x1000/uL (130-400); RED BLOOD CELL COUNT 4.28 mill/uL (4.2-5.4); RED CELL DISTRIBUTION WIDTH 13.1 % (11.6-14.6); WHITE BLOOD COUNT 4.5 x1000/uL (4.5-11.0)
[2024-04-20 13:11] LABS: DIFFERENTIAL COMMENT 1
[2024-04-20 13:58] LABS: CREATININE 1.6 mg/dL (0.6-1.0)
[2024-04-20] MEDS: SODIUM CHLORIDE 0.9% 1,000 ML IV ONE (19:09)
[2024-04-20 21:35] VITALS: TEMP 97.8
[2024-04-20] MEDS: ACETAMINOPHEN 500MG TABLET PO ONE (21:35)
== END 2024-04-20 22:32 | disposition home or self-care (01) ==
LOC: ER 11:14
DX: E86.0 Dehydration (principal); E11.65 Type 2 diabetes mellitus with hyperglycemia; E78.00 Pure hypercholesterolemia, unspecified; I50.9 Heart failure, unspecified; Z79.899 Other long term (current) drug therapy; Z79.82 Long term (current) use of aspirin; Z79.4 Long term (current) use of insulin; Z88.5 Allergy status to narcotic agent
CPT/HCPCS: 99283; 80048; 82962; 83690; 85025; 36415; J7030

== ENCOUNTER 2024-08-20 11:10 | Emergency (ER) | payer MEDICARE, MEDICAID ==
[~2024-08-20] VITALS: Ht 165.1 cm; Wt 83.0 kg
[2024-08-20 11:17] VITALS: BP 122/78; PULSE 87; RESP 16; TEMP 36.8; O2SAT 100; O2SAT 98
[2024-08-20 11:54] LABS: BASOPHILS % 0.8 % (0.0-2.0); EOSINOPHILS % 2.1 % (0.0-5.0); HEMATOCRIT. 36.7 % (36.0-48.0); HEMOGLOBIN. 11.4 g/dL (12.0-16.0); LYMPHOCYTES % 29.8 % (20.0-50.0); MEAN CORPUSCULAR HEMOGLOBIN 27.8 pg (28.0-32.0); MEAN CORPUSCULAR HGB CONC 31.2 g/dL (31.0-37.0); MEAN CORPUSCULAR VOLUME 89.2 fL (81.0-99.0); MEAN PLATELET VOLUME 8.3 fl (7.4-10.4); MONOCYTES % 8.6 % (2.0-8.0); NEUTROPHILS % 58.7 % (40.0-76.0); PLATELET 222 x1000/uL (130-400); RED BLOOD CELL COUNT 4.12 mill/uL (4.2-5.4); RED CELL DISTRIBUTION WIDTH 13.7 % (11.6-14.6); WHITE BLOOD COUNT 4.5 x1000/uL (4.5-11.0)
[2024-08-20 12:03] LABS: CHLORIDE 99 mEq/L (98-107); POTASSIUM 4.1 mEq/L (3.5-5.1); SODIUM 137 mEq/L (136-145)
[2024-08-20 12:04] LABS: CARBON DIOXIDE 29 mEq/L (21-32)
[2024-08-20 12:05] LABS: CALCIUM 9.9 mg/dL (8.7-10.4)
[2024-08-20 12:09] LABS: CREATININE 1.3 mg/dL (0.6-1.0)
[2024-08-20 12:10] LABS: GLUCOSE 270 mg/dL (70-105); UREA NITROGEN BLOOD 27 mg/dL (9-23)
[2024-08-20 12:11] LABS: TROPONIN I HIGH SENSITIVITY 6 ng/L (3.0-34)
[2024-08-20] MEDS: SODIUM CHLORIDE 0.9% 1,000 ML IV ONE (13:03)
[2024-08-20 13:25] LABS: CLARITY URINE CLEAR (CLEAR); COLOR URINE YELLOW (YELLOW); GLUCOSE URINE 1+ (NEGATIVE); KETONES URINE NEGATIVE (NEGATIVE); LEUKOCYTE ESTERASE URINE NEGATIVE (NEGATIVE); NITRITE URINE NEGATIVE (NEGATIVE); OCCULT BLOOD URINE NEGATIVE (NEGATIVE); PH URINE 5.5 (4.5-8.0); PROTEIN URINE NEGATIVE (NEGATIVE); SPECIFIC GRAVITY URINE 1.013 (1.005-1.030); UROBILINOGEN URINE 0.2 E.U./dL (0.2-1.0)
[2024-08-20 13:42] LABS: RBC URINE NONE SEEN /hpf (0-2); WBC URINE 0-2 /hpf (0-2)
[2024-08-20 13:43] LABS: SQUAMOUS EPITHELIAL CELL URINE 1+ /lpf (RARE/1+)
[2024-08-20 13:45] LABS: BACTERIA URINE NONE SEEN
== END 2024-08-20 15:00 | disposition home or self-care (01) ==
LOC: ER 11:10
DX: R42 Dizziness and giddiness (principal); R51.9 Headache, unspecified; E11.9 Type 2 diabetes mellitus without complications; E78.5 Hyperlipidemia, unspecified; I10 Essential (primary) hypertension; N28.9 Disorder of kidney and ureter, unspecified; Z79.4 Long term (current) use of insulin; Z79.82 Long term (current) use of aspirin; Z79.899 Other long term (current) drug therapy; Z88.5 Allergy status to narcotic agent
CPT/HCPCS: 99284; 96360; 70450; 80048; 81003; 85025; 84484; 36415; 93005; J7030

== ENCOUNTER 2024-08-24 13:16 | Emergency (ER) | payer MEDICARE, MEDICAID ==
[~2024-08-24] VITALS: Ht 167.6 cm; Wt 81.6 kg
[2024-08-24 13:23] VITALS: O2SAT 97
[2024-08-24 14:29] LABS: BASOPHILS % 0.5 % (0.0-2.0); HEMATOCRIT. 33.6 % (36.0-48.0); HEMOGLOBIN. 10.4 g/dL (12.0-16.0); LYMPHOCYTES % 36.1 % (20.0-50.0); MEAN CORPUSCULAR HEMOGLOBIN 27.5 pg (28.0-32.0); MEAN CORPUSCULAR VOLUME 88.6 fL (81.0-99.0); MEAN PLATELET VOLUME 8.4 fl (7.4-10.4); MONOCYTES % 5.9 % (2.0-8.0); NEUTROPHILS % 55.5 % (40.0-76.0); PLATELET 202 x1000/uL (130-400); RED BLOOD CELL COUNT 3.79 mill/uL (4.2-5.4); RED CELL DISTRIBUTION WIDTH 13.9 % (11.6-14.6); WHITE BLOOD COUNT 4.6 x1000/uL (4.5-11.0)
[2024-08-24 15:03] LABS: CHLORIDE 105 mEq/L (98-107); POTASSIUM 4.4 mEq/L (3.5-5.1); SODIUM 135 mEq/L (136-145)
[2024-08-24 15:04] LABS: CALCIUM 9.4 mg/dL (8.7-10.4); CARBON DIOXIDE 25 mEq/L (21-32)
[2024-08-24 15:09] LABS: UREA NITROGEN BLOOD 20 mg/dL (9-23)
[2024-08-24 15:11] LABS: ALANINE AMINOTRANSFERASE 17 IU/L (10-49); ALBUMIN 3.9 g/dL (3.2-4.8); ASPARTATE AMINOTRANSFERASE 19 IU/L (<34); BILIRUBIN TOTAL 0.5 mg/dL (0.1-1.0)
[2024-08-24 15:52] LABS: GLUCOSE 414 mg/dL (70-105)
[2024-08-24] MEDS: SODIUM CHLORIDE 0.9% 1,000 ML IV ONE (17:15)
[2024-08-24] MEDS: INSULIN REGULAR (HUMULIN R) 1000UNITS/10ML VIAL IV ONE (18:16)
[2024-08-24 18:30] VITALS: BP 159/88; PULSE 81; RESP 20; TEMP 37; O2SAT 97
== END 2024-08-24 21:00 | disposition home or self-care (01) ==
LOC: ER 13:16
DX: E11.65 Type 2 diabetes mellitus with hyperglycemia (principal); I10 Essential (primary) hypertension; Z79.899 Other long term (current) drug therapy; Z79.82 Long term (current) use of aspirin; Z88.5 Allergy status to narcotic agent
CPT/HCPCS: 99283; 80053; 82962; 85025; 36415; J7030; J1815; A4606

== ENCOUNTER 2024-09-13 17:49 | Emergency (ER) | payer MEDICARE, MEDICAID ==
[~2024-09-13] VITALS: Ht 162.6 cm; Wt 72.5 kg
[2024-09-13 17:53] VITALS: PULSE 94; O2SAT 100
[2024-09-13 17:55] VITALS: BP 131/92; RESP 16; TEMP 37; O2SAT 98
[2024-09-13 18:33] LABS: BASOPHILS % 1.1 % (0.0-2.0); EOSINOPHILS % 2.6 % (0.0-5.0); HEMATOCRIT. 32.3 % (36.0-48.0); HEMOGLOBIN. 10.6 g/dL (12.0-16.0); LYMPHOCYTES % 35.1 % (20.0-50.0); MEAN CORPUSCULAR HEMOGLOBIN 28.8 pg (28.0-32.0); MEAN CORPUSCULAR HGB CONC 32.6 g/dL (31.0-37.0); MEAN CORPUSCULAR VOLUME 88.3 fL (81.0-99.0); MONOCYTES % 5.8 % (2.0-8.0); NEUTROPHILS % 55.4 % (40.0-76.0); PLATELET 220 x1000/uL (130-400); RED BLOOD CELL COUNT 3.66 mill/uL (4.2-5.4); RED CELL DISTRIBUTION WIDTH 14.5 % (11.6-14.6); WHITE BLOOD COUNT 4.1 x1000/uL (4.5-11.0)
[2024-09-13 18:41] LABS: CHLORIDE 104 mEq/L (98-107); POTASSIUM 3.7 mEq/L (3.5-5.1); SODIUM 141 mEq/L (136-145)
[2024-09-13 18:42] LABS: CALCIUM 9.2 mg/dL (8.7-10.4); CARBON DIOXIDE 31 mEq/L (21-32)
[2024-09-13 18:47] LABS: GLUCOSE 190 mg/dL (70-105); UREA NITROGEN BLOOD 18 mg/dL (9-23)
[2024-09-13 18:49] LABS: ALANINE AMINOTRANSFERASE 23 IU/L (10-49); ALBUMIN 3.8 g/dL (3.2-4.8); ASPARTATE AMINOTRANSFERASE 26 IU/L (<34); BILIRUBIN DIRECT 0.1 mg/dL (<=3.0); BILIRUBIN TOTAL 0.6 mg/dL (0.1-1.0); PROTEIN TOTAL 6.9 g/dL (6.0-8.3)
[2024-09-13 19:00] LABS: TROPONIN I HIGH SENSITIVITY 9 ng/L (3.0-34)
[2024-09-13] MEDS ORDERED: CEFTRIAXONE 1GM/50ML 50 ML IV ONE (19:30)
[2024-09-13] MEDS ORDERED: SODIUM CHLORIDE 0.9% (SEPSIS BOLUS) IV ONE (19:30)
[2024-09-13] MEDS ORDERED: AZITHROMYCIN 500MG/250ML 250 ML IV ONE (19:30)
[2024-09-13] MEDS ORDERED: ASPIRIN 81MG TABLET PO ONE (19:30)
[2024-09-13] MEDS ORDERED: NITROGLYCERIN 0.4MG TABLET SL SL PRN (19:30)
[2024-09-13 19:46] LABS: D-DIMER 0.9 mg/L FEU (<0.50); INR 0.9; PARTIAL THROMBOPLASTIN TIME 24.6 sec (23.4-31.0)
== END 2024-09-13 19:52 | disposition left against medical advice (07) ==
LOC: ER 17:49
DX: R42 Dizziness and giddiness (principal); R55 Syncope and collapse; R07.9 Chest pain, unspecified; R19.8 Other specified symptoms and signs involving the digestive system and abdomen; E11.9 Type 2 diabetes mellitus without complications; I11.0 Hypertensive heart disease with heart failure; I50.9 Heart failure, unspecified; Z79.899 Other long term (current) drug therapy; Z79.82 Long term (current) use of aspirin; Z79.4 Long term (current) use of insulin; Z88.5 Allergy status to narcotic agent
CPT/HCPCS: 99285; 71045; 80076; 80048; 83880; 83605; 83690; 85025; 85379; 85610; 85730; 87040; 84484; 36415; 93005; J7030

== ENCOUNTER 2024-10-29 22:47 | Emergency (ER) | payer MEDICARE, MEDICAID ==
[~2024-10-29] VITALS: Ht 167.6 cm; Wt 82.0 kg
[~2024-10-29 22:47] MED LIST changes: -AMOX1TAB16 MT; -ATOR20TA65 MT; -CEPH500T MT; -INSU100I28 SQ; -SULF1TAB48 MT
[2024-10-29 23:05] VITALS: TEMP 36.6; O2SAT 98
[2024-10-30] MEDS: ACETAMINOPHEN 325MG TABLET PO ONE (00:35)
[2024-10-30 00:44] LABS: BASOPHILS % 0.7 % (0.0-2.0); EOSINOPHILS % 2.9 % (0.0-5.0); HEMATOCRIT. 33.6 % (36.0-48.0); HEMOGLOBIN. 10.9 g/dL (12.0-16.0); LYMPHOCYTES % 39.4 % (20.0-50.0); MEAN CORPUSCULAR HGB CONC 32.4 g/dL (31.0-37.0); MEAN CORPUSCULAR VOLUME 89.4 fL (81.0-99.0); MEAN PLATELET VOLUME 8.5 fl (7.4-10.4); MONOCYTES % 9.7 % (2.0-8.0); NEUTROPHILS % 47.3 % (40.0-76.0); PLATELET 221 x1000/uL (130-400); RED BLOOD CELL COUNT 3.77 mill/uL (4.2-5.4); WHITE BLOOD COUNT 4.7 x1000/uL (4.5-11.0)
[2024-10-30 00:46] LABS: CARBON DIOXIDE 27 mEq/L (21-32); CHLORIDE 105 mEq/L (98-107); POTASSIUM 4.3 mEq/L (3.5-5.1); SODIUM 142 mEq/L (136-145)
[2024-10-30 00:47] LABS: CALCIUM 9.5 mg/dL (8.7-10.4)
[2024-10-30 00:50] LABS: INR 0.9; PARTIAL THROMBOPLASTIN TIME 24.5 sec (23.4-31.0); PROTHROMBIN TIME 9.8 sec (9.6-11.0)
[2024-10-30 00:52] LABS: ETHANOL BLOOD < 10 mg/dL (<10); GLUCOSE 166 mg/dL (70-105); TROPONIN I HIGH SENSITIVITY 4 ng/L (3.0-34); UREA NITROGEN BLOOD 25 mg/dL (9-23)
[2024-10-30 00:54] LABS: PHOSPHORUS 4.1 mg/dL (2.5-4.9)
[2024-10-30 00:55] LABS: CREATININE 1.3 mg/dL (0.6-1.0)
[2024-10-30] MEDS ORDERED: ACET-2708 MT (01:29)
[2024-10-30 01:54] VITALS: BP 131/79; PULSE 78; RESP 18; O2SAT 99
== END 2024-10-30 01:56 | disposition home or self-care (01) ==
LOC: ER 22:47
DX: R55 Syncope and collapse (principal); G44.209 Tension-type headache, unspecified, not intractable; E11.9 Type 2 diabetes mellitus without complications; E78.00 Pure hypercholesterolemia, unspecified; I11.0 Hypertensive heart disease with heart failure; I50.9 Heart failure, unspecified; Z79.82 Long term (current) use of aspirin; Z79.899 Other long term (current) drug therapy; Z88.5 Allergy status to narcotic agent
CPT/HCPCS: 36415; 71045; 80048; 80320; 83735; 83880; 84100; 84484; 85025; 93005; 99285; G0480

== ENCOUNTER 2025-01-17 12:14 | Emergency (ER) | payer MEDICARE, MEDICAID ==
[~2025-01-17] VITALS: Ht 170.2 cm; Wt 85.0 kg
[~2025-01-17 12:14] MED LIST changes: +ACET-2708 MT
[2025-01-17 12:23] VITALS: TEMP 36.7; O2SAT 99
[2025-01-17 13:27] LABS: BASOPHILS % 1.2 % (0.0-2.0); EOSINOPHILS % 3.6 % (0.0-5.0); HEMATOCRIT. 33.7 % (36.0-48.0); HEMOGLOBIN. 10.8 g/dL (12.0-16.0); LYMPHOCYTES % 32.9 % (20.0-50.0); MEAN PLATELET VOLUME 8.7 fl (7.4-10.4); MONOCYTES % 6.1 % (2.0-8.0); NEUTROPHILS % 56.2 % (40.0-76.0); PLATELET 190 x1000/uL (130-400); RED BLOOD CELL COUNT 3.80 mill/uL (4.2-5.4); RED CELL DISTRIBUTION WIDTH 13.6 % (11.6-14.6)
[2025-01-17] MEDS: ONDANSETRON HCL 4MG/2ML INJ IV ONE (13:35)
[2025-01-17] MEDS: SODIUM CHLORIDE 0.9% 500 ML IV ONE ×2 (13:37→14:23)
[2025-01-17] MEDS: MORPHINE SULFATE 4 MG/ML INJ (FOR IV/IM USE) IV ONE (13:37)
[2025-01-17 13:57] LABS: CREATININE 1.4 mg/dL (0.6-1.0); UREA NITROGEN BLOOD 20 mg/dL (9-23)
[2025-01-17 13:59] LABS: ASPARTATE AMINOTRANSFERASE 20 IU/L (<34); BILIRUBIN DIRECT 0.2 mg/dL (<=3.0)
[2025-01-17 14:00] LABS: BILIRUBIN TOTAL 0.9 mg/dL (0.1-1.0); PROTEIN TOTAL 6.4 g/dL (6.0-8.3)
[2025-01-17] MEDS: ACETAMINOPHEN 325MG TABLET PO ONE (14:18)
[2025-01-17] MEDS ORDERED: IBUP-1455 MT (15:55)
[2025-01-17 16:26] VITALS: BP 116/58; PULSE 83; RESP 16; O2SAT 97
== END 2025-01-17 16:29 | disposition home or self-care (01) ==
LOC: ER 12:35 → CMPBEDREQ 01-18 07:47
DX: R51.9 Headache, unspecified (principal); E86.0 Dehydration; E11.9 Type 2 diabetes mellitus without complications; E78.00 Pure hypercholesterolemia, unspecified; I11.0 Hypertensive heart disease with heart failure; I50.9 Heart failure, unspecified; Z79.82 Long term (current) use of aspirin; Z79.899 Other long term (current) drug therapy; Z88.5 Allergy status to narcotic agent
CPT/HCPCS: 99285; 96374; 70450; 71045; 80076; 80048; 83735; 85025; 36415; J2405; J7030; J2270

== ENCOUNTER 2025-03-15 14:52 | Emergency (ER) | payer MEDICARE, MEDICAID ==
[~2025-03-15] VITALS: Ht 175.3 cm; Wt 82.0 kg
[~2025-03-15 14:52] MED LIST changes: +IBUP-1455 MT
[2025-03-15 15:01] VITALS: O2SAT 99
[2025-03-15] MEDS ORDERED: METOCLOPRAMIDE HCL 10MG TABLET PO ONE (16:00)
[2025-03-15] MEDS ORDERED: ACETAMINOPHEN 325MG TABLET PO ONE (16:00)
[2025-03-15 17:05] LABS: BASOPHILS % 1.2 % (0.0-2.0); EOSINOPHILS % 9.7 % (0.0-5.0); HEMATOCRIT. 33.5 % (36.0-48.0); HEMOGLOBIN. 10.7 g/dL (12.0-16.0); LYMPHOCYTES % 25.6 % (20.0-50.0); MEAN PLATELET VOLUME 8.4 fl (7.4-10.4); MONOCYTES % 7.5 % (2.0-8.0); NEUTROPHILS % 56.0 % (40.0-76.0); PLATELET 255 x1000/uL (130-400); RED BLOOD CELL COUNT 3.73 mill/uL (4.2-5.4); RED CELL DISTRIBUTION WIDTH 13.7 % (11.6-14.6)
[2025-03-15 17:16] LABS: CREATININE 1.0 mg/dL (0.6-1.0)
[2025-03-15 17:17] LABS: UREA NITROGEN BLOOD 20 mg/dL (9-23)
[2025-03-15] MEDS ORDERED: TOPUD MT (17:50)
[2025-03-15] MEDS: METOCLOPRAMIDE HCL 10MG TABLET PO SCH (18:13)
[2025-03-15] MEDS: ACETAMINOPHEN 325MG TABLET PO SCH (18:13)
[2025-03-15 19:17] VITALS: BP 135/66; PULSE 79; RESP 16; TEMP 36.6; O2SAT 99
== END 2025-03-15 19:18 | disposition home or self-care (01) ==
LOC: ER 14:52
DX: R51.9 Headache, unspecified (principal); E11.9 Type 2 diabetes mellitus without complications; I11.0 Hypertensive heart disease with heart failure; E78.00 Pure hypercholesterolemia, unspecified; Z79.82 Long term (current) use of aspirin; Z88.5 Allergy status to narcotic agent; Z79.899 Other long term (current) drug therapy; Z20.822 Contact with and (suspected) exposure to COVID-19
CPT/HCPCS: 99283; 87426; 80048; 85025; 36415; J8597

== ENCOUNTER 2025-03-31 10:11 | Emergency (ER) | payer MEDICARE, MEDICAID ==
[~2025-03-31] VITALS: Ht 170.2 cm; Wt 66.0 kg
[~2025-03-31 10:11] MED LIST changes: +TOPUD MT
[2025-03-31 10:42] VITALS: TEMP 36.5; O2SAT 98
[2025-03-31] MEDS: FAMOTIDINE 20MG TABLET PO ONE (11:26)
[2025-03-31] MEDS: MAGNESIUM/ALUMINUM HYDROXIDE/SIMETHICONE 30ML UDC PO ONE (11:26)
[2025-03-31] MEDS: ONDANSETRON 4MG ODT PO ONE (11:26)
[2025-03-31 12:01] LABS: BASOPHILS % 0.9 % (0.0-2.0); EOSINOPHILS % 4.9 % (0.0-5.0); HEMATOCRIT. 34.7 % (36.0-48.0); HEMOGLOBIN. 11.0 g/dL (12.0-16.0); LYMPHOCYTES % 23.2 % (20.0-50.0); MEAN PLATELET VOLUME 8.6 fl (7.4-10.4); MONOCYTES % 6.9 % (2.0-8.0); NEUTROPHILS % 64.1 % (40.0-76.0); PLATELET 228 x1000/uL (130-400); RED BLOOD CELL COUNT 3.88 mill/uL (4.2-5.4); RED CELL DISTRIBUTION WIDTH 13.9 % (11.6-14.6)
[2025-03-31 12:10] LABS: CREATININE 1.3 mg/dL (0.6-1.0); ETHANOL BLOOD < 10 mg/dL (<10); UREA NITROGEN BLOOD 13 mg/dL (9-23)
[2025-03-31 12:12] LABS: ASPARTATE AMINOTRANSFERASE 29 IU/L (<34); BILIRUBIN DIRECT 0.2 mg/dL (<=3.0); BILIRUBIN TOTAL 0.8 mg/dL (0.1-1.0); PROTEIN TOTAL 6.8 g/dL (6.0-8.3)
[2025-03-31] MEDS ORDERED: FAMO-135 MT (13:50)
[2025-03-31] MEDS ORDERED: IBUP-1455 MT (13:50)
[2025-03-31 15:27] VITALS: BP 115/51; PULSE 88; RESP 16; O2SAT 98
== END 2025-03-31 15:40 | disposition home or self-care (01) ==
LOC: ER 10:11
DX: K29.70 Gastritis, unspecified, without bleeding (principal); K80.20 Calculus of gallbladder without cholecystitis without obstruction; E11.9 Type 2 diabetes mellitus without complications; E78.00 Pure hypercholesterolemia, unspecified; I10 Essential (primary) hypertension; Z79.82 Long term (current) use of aspirin; Z79.899 Other long term (current) drug therapy; Z88.5 Allergy status to narcotic agent
CPT/HCPCS: 80076; 80048; 80320; 83690; 85025; 36415; 76700; 99284; Q0162; G0480

== ENCOUNTER 2025-04-11 13:52 | Emergency (ER) | payer MEDICARE, MEDICAID ==
[~2025-04-11] VITALS: Ht 170.2 cm; Wt 82.0 kg
[~2025-04-11 13:52] MED LIST changes: +FAMO-135 MT
[2025-04-11 14:20] VITALS: O2SAT 98
[2025-04-11 16:27] LABS: BASOPHILS % 1.0 % (0.0-2.0); EOSINOPHILS % 2.4 % (0.0-5.0); HEMATOCRIT. 33.2 % (36.0-48.0); HEMOGLOBIN. 10.6 g/dL (12.0-16.0); LYMPHOCYTES % 24.6 % (20.0-50.0); MEAN PLATELET VOLUME 8.6 fl (7.4-10.4); MONOCYTES % 8.8 % (2.0-8.0); NEUTROPHILS % 63.2 % (40.0-76.0); PLATELET 241 x1000/uL (130-400); RED BLOOD CELL COUNT 3.72 mill/uL (4.2-5.4); RED CELL DISTRIBUTION WIDTH 13.8 % (11.6-14.6)
[2025-04-11 16:43] LABS: CREATININE 1.1 mg/dL (0.6-1.0); TROPONIN I HIGH SENSITIVITY 29 ng/L (3.0-34)
[2025-04-11 16:44] LABS: UREA NITROGEN BLOOD 24 mg/dL (9-23)
[2025-04-11 16:45] LABS: ASPARTATE AMINOTRANSFERASE 21 IU/L (<34); BILIRUBIN DIRECT 0.2 mg/dL (<=3.0)
[2025-04-11 16:46] LABS: BILIRUBIN TOTAL 0.6 mg/dL (0.1-1.0); PROTEIN TOTAL 6.4 g/dL (6.0-8.3)
[2025-04-11 18:08] VITALS: BP 118/60; PULSE 78; RESP 18; TEMP 36.8; O2SAT 98
== END 2025-04-11 18:13 | disposition home or self-care (01) ==
LOC: ER 13:52
DX: R53.1 Weakness (principal); R51.9 Headache, unspecified; E11.65 Type 2 diabetes mellitus with hyperglycemia; I11.0 Hypertensive heart disease with heart failure; I50.9 Heart failure, unspecified; E78.00 Pure hypercholesterolemia, unspecified; Z79.82 Long term (current) use of aspirin; Z88.5 Allergy status to narcotic agent; Z79.899 Other long term (current) drug therapy
CPT/HCPCS: 36415; 80048; 80076; 83735; 84484; 85025; 93005; 99284

== ENCOUNTER 2025-05-06 12:57 | Emergency (ER) | payer MEDICARE, MEDICAID ==
[~2025-05-06] VITALS: Ht 167.6 cm; Wt 82.0 kg
[2025-05-06 12:59] VITALS: O2SAT 99
[2025-05-06 14:15] LABS: BASOPHILS % 0.8 % (0.0-2.0); EOSINOPHILS % 4.2 % (0.0-5.0); HEMATOCRIT. 35.8 % (36.0-48.0); HEMOGLOBIN. 11.6 g/dL (12.0-16.0); LYMPHOCYTES % 35.0 % (20.0-50.0); MEAN PLATELET VOLUME 7.8 fl (7.4-10.4); MONOCYTES % 5.9 % (2.0-8.0); NEUTROPHILS % 54.1 % (40.0-76.0); PLATELET 241 x1000/uL (130-400); RED BLOOD CELL COUNT 4.01 mill/uL (4.2-5.4); RED CELL DISTRIBUTION WIDTH 14.4 % (11.6-14.6)
[2025-05-06 14:35] LABS: CREATININE 1.2 mg/dL (0.6-1.0)
[2025-05-06 14:36] LABS: PROTEIN TOTAL 7.3 g/dL (6.0-8.3); UREA NITROGEN BLOOD 23 mg/dL (9-23)
[2025-05-06 14:37] LABS: ASPARTATE AMINOTRANSFERASE 22 IU/L (<34); TROPONIN I HIGH SENSITIVITY 7 ng/L (3.0-34)
[2025-05-06 14:38] LABS: BILIRUBIN DIRECT 0.2 mg/dL (<=3.0); BILIRUBIN TOTAL 0.9 mg/dL (0.1-1.0)
[2025-05-06 16:38] VITALS: BP 110/60; PULSE 89; RESP 18; TEMP 36.7; O2SAT 99
[2025-05-06 16:46] LABS: TROPONIN I HIGH SENSITIVITY 6 ng/L (3.0-34)
[2025-05-06] MEDS: ACETAMINOPHEN 500MG TABLET PO ONE (16:57)
== END 2025-05-06 17:05 | disposition home or self-care (01) ==
LOC: ER 13:22
DX: E86.0 Dehydration (principal); E11.9 Type 2 diabetes mellitus without complications; E78.00 Pure hypercholesterolemia, unspecified; I10 Essential (primary) hypertension; I25.2 Old myocardial infarction; Z79.82 Long term (current) use of aspirin; Z79.899 Other long term (current) drug therapy; Z88.5 Allergy status to narcotic agent
CPT/HCPCS: 36415; 80048; 80076; 82962; 83735; 84484; 85025; 93005; 99284